=== PATIENT | male | born 1955 | race Caucasian/White ===

== ENCOUNTER → 2016-04-06 | Outpatient (CLI) | payer BC ==
[2014-02-27 09:14] VITALS: BP 157/70
[~2016-04-06] MED LIST: AMLO10TA2 PO; ASPI-482 PO; CHOL10002 PO; CYCL10TA2 PO; HYDR-2672 PO; HYDR-2762 PO; IBUP-1007 PO; LISI10TA2 PO; OXYC-250 PO; SIMV10TA3 PO
--- NOTE | 2016-04-07 05:47 | PAIN ---
DATE OF SERVICE: 04/06/2016 DIAGNOSES: 1. Lumbar spondylosis with lumbar degenerative disk disease and post-lumbar laminectomy syndrome. 2. Right sacroiliitis. HISTORY OF PRESENT ILLNESS: The patient is a 60-year-old male who returns for followup status post medication management with oxycodone and Flexeril. The patient reports he has been doing fairly well, but the oxycodone is becoming less and less effective overtime, especially over the last month or so. The patient has been vacationing with walking quite a bit at his vacation area and reports that his back was significantly painful as one time he had to use a wheelchair just to get back to his room. The patient reports no new motor or sensory deficits, no new bowel or bladder incontinence, but significant pain in the low back and bilateral lower extremities as he has had previously and was slightly worse on the right side. The patient reports no side effects with his medication, but less effectiveness with the oxycodone at this time. The patient's K-TRACS reporting has been appropriate to date as well as his urinalysis to date. He has been very compliant with medications. We discussed some interventional techniques and the patient is adamantly against these at this time. We did do radiofrequency ablation about a year ago, but the procedure itself was very uncomfortable for him and he wishes not to proceed with any more injections or procedures for his lumbar spine at this time. We did discuss this in some detail and let him know that this is available if he decides to go that way. PHYSICAL EXAMINATION: VITAL SIGNS: Today, the patient's blood pressure is 152/78, pulse 101, respirations 18, temperature 98.4 degrees Fahrenheit, height is 5 feet 10 inches, weighs 188 pounds. GENERAL: The patient is awake, alert, oriented and appropriate, very pleasant demeanor. HEENT: Shows normocephalic and atraumatic. Extraocular movements are intact and symmetrical. Oral cavity, mucous membranes are moist and pink. NECK: Shows anterior throat supple without palpable lymphadenopathy noted. Swallow reflex is symmetrical. CHEST: Shows normal on inspection. Breath sounds clear to auscultation bilaterally. HEART: Shows S1 and S2 clear. No murmurs auscultated. ABDOMEN: Soft, nontender, nondistended. No palpable organomegaly. No rebound or guarding demonstrated. BACK: The patient's back shows spine grossly midline. Normal-appearing thoracic kyphosis with some flattening of the lumbar lordotic curvature. Well-healed surgical scarring is noted in the lumbar distribution and lumbar paraspinous muscles are diffusely tender throughout the middle and lower distribution bilaterally, but without significant atrophy, hypertrophy or asymmetry. No tenderness over the sacrum or sacroiliac regions. EXTREMITIES: Lower extremities show deep tendon reflexes at 1+ in the patellar and tendo calcaneus tendons. Motor exam is strong with 5/5 dorsiflexion, extension, quadriceps and hamstring flexion equal bilaterally. Options were discussed with the patient at this time, the patient's old chart was reviewed as his current medication regimen and updated. Current review of systems updated today as well. We will refill the patient's medications, but change the oxycodone to hydromorphone at 4 mg with instructions to take one tablet up to 4 times daily and instructions and side effects were discussed with the medication. Again, the patient was encouraged to maintain activity as tolerated, mainly walking and stretching as he is doing, and he was given a 90-day supply of medications, will return for followup at that time or sooner as necessary. The patient was counseled to follow up with progress report within a week once he has tried the new medications, if there are any issues. NICK GOMEZ MD DR: MERRY/beth JOB#: [id number] / [id number]
== END | disposition home or self-care (01) ==
LOC: PNCL 12:47
PROVIDERS: ATTEND Anesthesiology
DX: M51.36 Other intervertebral disc degeneration, lumbar region (principal); M96.1 Postlaminectomy syndrome, not elsewhere classified; M46.1 Sacroiliitis, not elsewhere classified
CPT/HCPCS: 99212

== ENCOUNTER → 2016-06-29 | Outpatient (CLI) | payer BC ==
[2014-02-27 09:14] VITALS: BP 157/70
[~2016-06-29] MED LIST changes: +OXYC15TA PO
--- NOTE | 2016-06-30 02:35 | PAIN ---
DATE OF SERVICE: 06/29/2016 PROGRESS NOTE FOR PAIN CLINIC DIAGNOSIS: Lumbar spondylosis with lumbar degenerative disk disease, post-lumbar laminectomy syndrome. HISTORY OF PRESENT ILLNESS: The patient is a 61-year-old male who returns for followup status post medication management with oxycodone and Flexeril. The patient reports he has been doing fairly well ____ pain is increasing gradually ____ we had tried hydromorphone with him in the past, but it was not helpful at all and we changed him back to oxycodone 10 mg. The patient reports still significant pain across the low back bilaterally. Reports it is a 10 on a scale of 10 at all times. The patient reports it is stabbing, aching, severe, constant, worse with activity and being up on his feet and moving and walking, does not wake him up from sleep, but he does feel better lying down or sitting down, but he is on his feet, sometimes up to 17-18 hours a day by his report. The patient reports no new motor or sensory deficits or other complaints. Pain medication is helping, but only by about 50% at this time and the patient does seem to be developing some physiologic tolerance. PHYSICAL EXAMINATION: VITAL SIGNS: The patient's blood pressure is 136/75, pulse 101, respirations are 18, temperature is 98.2 degrees Fahrenheit, height is 5 feet 8 inches, weight is 185 pounds. GENERAL: The patient is awake, alert, oriented, appropriate, has a very pleasant demeanor. HEENT: Shows normocephalic, atraumatic. Extraocular movements are intact and symmetrical. Oral cavity, his mucous membranes are moist and pink. Dentition is intact. NECK: Shows anterior throat supple without palpable lymphadenopathy noted. Swallow reflex is symmetrical. CHEST: Shows normal on inspection. Breath sounds are clear to auscultation bilaterally. HEART: Shows S1 and S2 clear. ABDOMEN: Soft, nontender, nondistended. No palpable organomegaly is noted. No rebound or guarding demonstrated. BACK: Shows spine grossly in the midline. Normal appearing thoracic kyphosis with some mild flattening of the lumbar lordotic curvature. Well-healed surgical scar is noted in the lumbar distribution. Lumbar paraspinous muscle shows some moderate tenderness to palpation. It is very firm and tender throughout the upper, middle and lower distribution of the paraspinous muscles. The patient shows good rotational motion both laterally as well as extension and flexion with only some minor pain reported in all these rotations. EXTREMITIES: Lower extremities show deep tendon reflexes 1+ in the patellar and tendo-calcaneus tendons. Motor exam is strong with 5/5 dorsiflexion, extension, quadriceps and hamstring flexion, equal and symmetrical. PLAN: Options were discussed with the patient and the patient's old chart was reviewed as was his current medication regimen and updated. Current review of systems updated today as well. We will refill the patient's oxycodone, but at 15 mg instead of 10 as well as his Flexeril, refill that at 10 mg. The patient was given instructions as well as side effects to be aware of with the medications. We will follow up in approximately 2 months as scheduled or sooner if necessary. The patient was cautioned as to the side effects and to maintain hydration. As he is doing well with some MiraLax he takes occasionally, but not every day for some mild constipation he has had, we warned him with higher dose of the oxycodone, this could become more of a problem. The patient is aware of this and will follow up as scheduled. NICK GOMEZ MD DR: MERRY/beth JOB#: [id number] / [id number]
== END | disposition home or self-care (01) ==
LOC: PNCL 12:47
PROVIDERS: ATTEND Anesthesiology
DX: M51.36 Other intervertebral disc degeneration, lumbar region (principal); M47.896 Other spondylosis, lumbar region; M96.1 Postlaminectomy syndrome, not elsewhere classified
CPT/HCPCS: 99212

== ENCOUNTER → 2016-08-27 | Outpatient (CLI) | payer BC ==
[2014-02-27 09:14] VITALS: BP 157/70
[~2016-08-27] MED LIST changes: -HYDR-2672 PO; +HYDR-2766 PO; -OXYC-250 PO; +OXYC-328 PO
== END | disposition home or self-care (01) ==
LOC: PNCL 07:45
PROVIDERS: ATTEND Anesthesiology
DX: M51.36 Other intervertebral disc degeneration, lumbar region (principal); M47.896 Other spondylosis, lumbar region; M96.1 Postlaminectomy syndrome, not elsewhere classified
CPT/HCPCS: 99212

== ENCOUNTER → 2016-10-22 | Outpatient (CLI) | payer BC ==
[2014-02-27 09:14] VITALS: BP 157/70
--- NOTE | 2016-10-22 10:33 | PAIN ---
DATE OF SERVICE: 10/22/2016 DIAGNOSES: Lumbar spondylosis, lumbar degenerative disk disease and post-lumbar laminectomy syndrome. HISTORY OF PRESENT ILLNESS: The patient is a 61-year-old male who returns for followup status post medication management with oxycodone. The patient also has undergone right-sided L5-S1 and L4-L5 facet injections and facet blocks, also radiofrequency ablation of the L4-L5 and L5-S1 levels in February 2015 with only minimal improvement. The patient has had multiple recurrences that is of facet joint injections, epidural steroids in the past, all with only very limited relief of pain even with radiofrequency ablation, had only about 1 month of decreased pain and it was only by about 40-50%. The patient reports he does fairly well with the oxycodone, but the pain is becoming worse with time in his low back, leaning on the right side, radiating into his right posterior hip and gluteus, but not into the lower extremity significantly. The patient reports it as aching, sharp, burning, severe and unbearable at times, 10 on a scale of 10 at all levels. The patient reports it awakens him from sleep fairly significantly. He does take pain medication, get out of bed, change positions, also taking Flexeril at night, which helps decrease the pain as well. The patient reports pain increasing with activity. He is very busy with his occupation on his feet most of his working day and it slows down significantly. The patient reports no new motor or sensory deficits, no new bowel or bladder incontinence. PHYSICAL EXAMINATION: VITAL SIGNS: The patient's blood pressure is 145/85, pulse 93, respirations 20, temperature 98.5 degrees Fahrenheit, weight is 175 pounds. GENERAL: The patient is awake, alert, oriented, appropriate, very pleasant demeanor. HEENT: Head shows normocephalic, atraumatic. Extraocular movements are intact, symmetrical. Oral cavity, mucous membranes are moist and pink. Dentition is intact. NECK: Shows anterior throat supple. CHEST: Shows normal on inspection. Breath sounds clear to auscultation bilaterally. HEART: Shows S1 and S2 clear. No murmurs auscultated. ABDOMEN: Soft, nontender, nondistended. No palpable organomegaly, no rebound or guarding demonstrated. BACK: Shows spine grossly midline. Well-healed surgical scar is noted in the lumbar distribution. Lumbar paraspinous muscle shows some moderate tenderness with palpation bilaterally, but only diffusely in the middle and lower distribution. The patient shows some limited rotational motion secondary to pain and immobility secondary to the surgeries with forward flexion limited to about 40 degrees. EXTREMITIES: Lower extremities show deep tendon reflexes at 2+ in the patellar, 1+ in the tendo calcaneus tendons. Motor exam remain strong with 5/5 dorsiflexion, extension, quadriceps and hamstring flexion. PLAN: Options were discussed with the patient and the patient's old chart was reviewed as his current medication regimen updated. Current review of systems updated today as well. We will change the patient's oxycodone from 15 mg to 20 mg as he is having increased pain, also maintained Flexeril at night. The patient was given instruction as well as side effects to be aware of each of the medications. He is encouraged to maintain his hydration as well as activity level as tolerated. He reports that he would like to talk to his neurosurgeon and has already made an appointment for himself for any other options that may be available. We will have the patient follow up after that appointment and will be given 2-month prescription for his medications with instructions, side effects to be aware of discussed. The patient will follow up sooner if necessary. NICK GOMEZ MD DR: MERRY/beth JOB#: [id number] / [id number]
== END | disposition home or self-care (01) ==
LOC: PNCL 07:42
PROVIDERS: ATTEND Anesthesiology
DX: M51.16 Intervertebral disc disorders with radiculopathy, lumbar region (principal); M96.1 Postlaminectomy syndrome, not elsewhere classified; M47.9 Spondylosis, unspecified
CPT/HCPCS: 99212

== ENCOUNTER → 2016-11-17 | Outpatient (CLI) | payer BC ==
[2014-02-27 09:14] VITALS: BP 157/70
--- NOTE | 2016-11-17 12:57 | RAD ---
EXAM: Lumbar spine CT without contrast. HISTORY: Radiographically. TECHNIQUE: Computed tomographic images of the lumbar spine were obtained without contrast. Multiplanar reformatting was performed. COMPARISON: 02/27/2014. FINDINGS: There is instrumented posterior spinal fusion and intervertebral disc fusion device placement at L5-S1. The posterior instrumentation consists of paired left transpedicular screws bridged by a vertical hubert. There has been explantation of right transjugular screws. There is levoscoliosis centered at L5-S1. There is mild endplate remodeling at all levels. There is a Schmorl's node within the inferior endplate of T11. No suspicious lytic or sclerotic osseous lesion is seen. There is vacuum phenomenon involving the sacroiliac joints. At L1-L2, there is no stenosis. At L2-L3, there is a right lateral predominant disc bulge and endplate remodeling. There is mild right foraminal stenosis. At L3-L4, there is a disc bulge and endplate remodeling. There is mild left greater and right facet arthropathy. There is no stenosis. At L4-L5, there is a disc bulge and endplate remodeling. There is moderate facet arthropathy. There is minimal central canal stenosis. At L5-S1, there is instrumented fusion. There is a posterior central to right paracentral disc protrusion superimposed on a disc bulge and endplate remodeling. There is moderate right foraminal stenosis. There is suspected slight effacement of the right lateral recess. IMPRESSION: 1. Instrumented fusion at L5-S1, with explantation of prior right transpedicular screws. There is a posterior central to right paracentral disc protrusion superimposed on a disc bulge and endplate remodeling at this level, resulting in moderate right foraminal stenosis and suspected effacement of the right lateral recess. This is similar compared to the prior study. 2. Degenerative change throughout the remainder of the lumbar spine, described above. PQRS Compliance Statement: One or more of the following individualized dose reduction techniques were utilized for this examination: 1. Automated exposure control 2. Adjustment of the mA and/or kV according to patient size 3. Use of iterative reconstruction technique
== END | disposition home or self-care (01) ==
LOC: CT 09:35
PROVIDERS: ATTEND Neurological Surgery
DX: M54.16 Radiculopathy, lumbar region (principal)
CPT/HCPCS: 72131

== ENCOUNTER → 2016-12-17 | Outpatient (CLI) | payer BC ==
[2014-02-27 09:14] VITALS: BP 157/70
[~2016-12-17] MED LIST changes: +OXYC10TA PO
--- NOTE | 2016-12-17 10:18 | PAIN ---
DATE OF SERVICE: 12/17/2016 DATE OF SERVICE: 12/17/2016 DIAGNOSES: Lumbar spondylosis with lumbar degenerative disk disease, post-lumbar laminectomy syndrome and right sacroiliitis. HISTORY OF PRESENT ILLNESS: The patient is a 61-year-old male who returns for followup status post medication management with oxycodone. We had changed to 20 mg from 10 after the last visit. The patient reports he is doing much better with about 75% improvement in pain control after that change. The patient is still having some significant pain in the right low back. He also had a followup with his neurosurgeon and new CT scan of the lumbar spine was reviewed with him today showing instrumented fusion at L5-S1 and still posterior central to right paracentral disk protrusion superimposed on a disk bulge and endplate remodeling at the same level resulting in moderate right foraminal stenosis and suspected effacement of the right lateral recess similar to previous study. The patient reports still significant pain in the right posterior hip and low back, reports worse with walking, standing and recent change in weather. With colder weather, the pain has been much more noticeable. The patient reports no new motor or sensory deficits, no new bowel or bladder incontinence. The patient reports his pain is a 10 on a scale of 10 at all times, worst, least and average. It is radiating, severe, sharp, aching, dull and shooting at times in the right posterior hip. The patient reports it usually does not awaken him from sleep, feels better when he is lying down or sitting, and worse with standing and walking. PAST MEDICAL HISTORY: Significant for hypertension, arthritis, cigarette smoking. PREVIOUS SURGERY: Include lumbar surgery x 5 with fusion and screw removal, also left knee scope in the past. CURRENT MEDICATIONS: Well documented and updated on the patient's chart today. ALLERGIES: The patient has no known drug allergies. SOCIAL HISTORY: The patient continues to smoke about half a pack daily, does not drink alcohol. The patient is still working as a mulligan despite the chronic pain condition, he is maintaining productive activity. FAMILY HISTORY: Significant for heart disease, hypertension. REVIEW OF SYSTEMS: Positive for those items mentioned in history of present illness. All systems reviewed and otherwise negative. It is complete and well documented on the patient's chart. PHYSICAL EXAMINATION: VITAL SIGNS: Today, blood pressure is 145/73, pulse 91, respirations are 18, temperature is 98.4 degrees Fahrenheit, height 5 feet 10 inches, weight is 177 pounds. GENERAL: The patient is awake, alert, oriented, appropriate, very pleasant demeanor. HEENT: Head shows normocephalic, atraumatic. Extraocular movements are intact, symmetrical. Oral cavity: Mucous membranes moist and pink. Dentition is intact. NECK: Shows anterior throat supple without palpable lymphadenopathy noted. Swallow reflex is symmetrical. CHEST: Shows normal on inspection. Breath sounds are clear to auscultation bilaterally. HEART: Shows S1 and S2 clear. No murmurs auscultated. ABDOMEN: Soft, nontender, nondistended. No palpable organomegaly, no rebound or guarding. BACK: Shows spine grossly in midline. Significant flattening of lumbar lordotic curvature is noted with well-healed surgical scarring noted in the lumbar distribution. There is significant tenderness over the right superior aspect of the posterior sacroiliac joint, but not on the left. This is significantly tender with palpation, even with moderate palpation. The patient has good rotation and motion over the lower back, lumbar spine, both laterally as well as extension and flexion without significant exacerbation of pain. EXTREMITIES: Lower extremities showed deep tendon reflexes at 1+ in the patellar and tendo calcaneus tendons. Motor exam is strong with 5/5 dorsiflexion, extension, quadriceps and hamstring flexion and symmetrical. Peripheral pulses are 1+ posterior tibial. No peripheral edema is noted. PLAN: Options were discussed with the patient and the patient's old chart was reviewed as his current medication regimen updated. Current review of systems updated today as well. We will refill the patient's oxycodone as well as Flexeril with instructions, side effects to be aware of discussed. The patient will consider a right sacroiliac joint injection. The patient reports he had too much other scheduled activities this morning to do this today. I encouraged him to consider this and return if the pain persists or worsens, the patient understands and agrees was given instruction as well as side effects to be aware with his medications and encouraged increased activity, also showed him some stretching exercises to do today to try to stretch the sacroiliac joints. He will try this on his own as well. NICK GOMEZ MD DR: MERRY/beth JOB#: [id number] / [id number]
== END | disposition home or self-care (01) ==
LOC: PNCL 07:45
PROVIDERS: ATTEND Anesthesiology
DX: M51.16 Intervertebral disc disorders with radiculopathy, lumbar region (principal); M47.896 Other spondylosis, lumbar region; M46.1 Sacroiliitis, not elsewhere classified
CPT/HCPCS: 99212

== ENCOUNTER → 2017-02-11 | Outpatient (CLI) | payer BC ==
[2014-02-27 09:14] VITALS: BP 157/70
--- NOTE | 2017-02-11 08:24 | PAIN ---
DATE OF SERVICE: 02/11/2017 DIAGNOSES: 1. Lumbar spondylosis with lumbar degenerative disk disease and post-lumbar laminectomy syndrome. 2. Right sacroiliitis. HISTORY OF PRESENT ILLNESS: The patient is a 61-year-old male who returns for followup status post medication management with oxycodone. The patient is doing very well with this on very stable regimen for a long time now, has been doing quite well without side effects. The patient reports about a 70% improvement overall in his low back pain with medication. He is able to function during the day. He does not have any side effects. Reports the pain is mostly in the right side of the low back over the sacroiliac region that he has had before. The patient reports pain is a 10 on a scale of 10 at all times at least and worst and on average and is a 10 today. The patient reports it is worse with activity, standing, walking, changing positions, but better with sitting or lying down. It is not waking him from sleep at night, he sleeps 7-8 hours at a time. The patient reports the pain is radiating occasionally into the right posterior gluteus and thigh, but mostly stays in the low back itself across low back, worse on the right side, aching, sharp, burning, tingling, on and off in intensity, but worse with standing, walking, better with sitting, better with lying down. The patient reports no new motor or sensory deficits, no new bowel or bladder incontinence or other complaints. PHYSICAL EXAMINATION: VITAL SIGNS: The patient's blood pressure is 134/77, pulse 90, respirations 16, temperature 98.3 degrees Fahrenheit, height is 5 feet 10 inches, weight is 179 pounds. GENERAL: The patient is awake, alert, oriented, appropriate, very pleasant demeanor. HEENT: Head shows normocephalic, atraumatic. Extraocular movements are intact and symmetrical. Oral cavity: Mucous membranes moist and pink. Dentition is intact. NECK: Shows anterior throat supple without palpable lymphadenopathy noted. Swallow reflex symmetrical. CHEST: Shows normal with inspection. Breath sounds are clear to auscultation bilaterally. HEART: Shows S1, S2 clear. No murmurs auscultated. ABDOMEN: Soft, nontender, nondistended. No palpable organomegaly. No rebound or guarding demonstrated. BACK: Shows spine grossly in midline. Lumbar paraspinous musculature shows a well-healed surgical scar in the midline. Paraspinous muscles are diffusely tender with palpation throughout, somewhat worse on the right than the left. Significant tenderness over the right superior aspect of the sacroiliac joint, but not the left. No tenderness over the sacrum. EXTREMITIES: Lower extremities show deep tendon reflexes at 2+ in the patellar, 1+ tendo-calcaneus tendons are equal. Motor exam is strong with 5/5 dorsiflexion, extension, quads and hamstring flexion and symmetrical. Peripheral pulses are 1+ posterior tibial. No peripheral edema is noted bilaterally. Options were discussed with the patient. The patient's old chart was reviewed, his current medication regimen updated. Current review of systems updated today as well, and we will refill the patient's oxycodone 20 mg q.6 hours on a p.r.n. basis, as well as Flexeril 10 mg 3 times daily as needed. The patient was given instruction as well as side effects to be aware of on each of the medications. Also discussed right sacroiliac joint injection as he is having significant pain with a positive Gaenslen sign on the right. The patient wanted to consider this as he is pressed for time this morning and will consider having this done in the near future. We discussed that he can return prior to his scheduled appointment if necessary, which would be in 60 days. He is given 2-month prescription refill. The patient has had appropriate K-TRACS reporting as well as appropriate urinalysis to date as well. NICK GOMEZ MD DR: MERRY/beth JOB#: [id number] / [id number]
== END | disposition home or self-care (01) ==
LOC: PNCL 07:35
PROVIDERS: ATTEND Anesthesiology
DX: M51.36 Other intervertebral disc degeneration, lumbar region (principal); M47.896 Other spondylosis, lumbar region; M46.1 Sacroiliitis, not elsewhere classified
CPT/HCPCS: G0463

== ENCOUNTER → 2017-04-08 | Outpatient (CLI) | payer BC | END | disposition home or self-care (01) | LOC: PNCL 07:36 | DX: M51.36 Other intervertebral disc degeneration, lumbar region (principal); M96.1 Postlaminectomy syndrome, not elsewhere classified; M46.1 Sacroiliitis, not elsewhere classified; M47.896 Other spondylosis, lumbar region | CPT/HCPCS: 99212 ==

== ENCOUNTER → 2017-06-03 | Outpatient (CLI) | payer BC ==
[~2017-06-03] MED LIST changes: -AMLO10TA2 PO; -ASPI-482 PO; +BUPIVACAINE MPF 0.25% 10 ML VIAL.; -CHOL10002 PO; -CYCL10TA2 PO; -HYDR-2762 PO; -HYDR-2766 PO; -IBUP-1007 PO; +IOHEXOL 180 MG/ML 10 ML VIAL.; -LISI10TA2 PO; -OXYC-328 PO; -OXYC10TA PO; -OXYC15TA PO; -SIMV10TA3 PO; +methylPREDNISolone ACETATE 80 MG/ML VIAL.
== END | disposition home or self-care (01) ==
LOC: PNCL 07:35
DX: M46.1 Sacroiliitis, not elsewhere classified (principal); M47.816 Spondylosis without myelopathy or radiculopathy, lumbar region; M51.36 Other intervertebral disc degeneration, lumbar region; M96.1 Postlaminectomy syndrome, not elsewhere classified
CPT/HCPCS: 27096; 77002; G0260; J1040; J3490; Q9965

== ENCOUNTER → 2017-07-29 | Outpatient (CLI) | payer BC | END | disposition home or self-care (01) | LOC: PNCL 07:51 | DX: M47.896 Other spondylosis, lumbar region (principal); M51.36 Other intervertebral disc degeneration, lumbar region | CPT/HCPCS: 99212 ==

== ENCOUNTER → 2017-09-28 | Outpatient (CLI) | payer BC | END | disposition home or self-care (01) | LOC: PNCL 08:13 | DX: M51.36 Other intervertebral disc degeneration, lumbar region (principal); M47.896 Other spondylosis, lumbar region | CPT/HCPCS: G0463 ==

== ENCOUNTER → 2017-11-22 | Outpatient (CLI) | payer BC ==
[2014-02-27 09:14] VITALS: BP 157/70
[~2017-11-22] MED LIST changes: +AMLO10TA6 PO; +ASPI-482 PO; -BUPIVACAINE MPF 0.25% 10 ML VIAL.; +CHOL10002 PO; +CYCL10TA2 PO; +HYDR-2762 PO; +HYDR-2766 PO; +IBUP-1007 PO; -IOHEXOL 180 MG/ML 10 ML VIAL.; +LISI10TA2 PO; +OXYC-328 PO; +OXYC10TA PO; +OXYC15TA PO; +SIMV10TA3 PO; -methylPREDNISolone ACETATE 80 MG/ML VIAL.
--- NOTE | 2017-11-22 17:25 | PAIN ---
DATE OF SERVICE: 11/22/2017 DIAGNOSES: 1. Lumbar spondylosis, lumbar degenerative disease post-lumbar laminectomy syndrome. 2. Right sacroiliitis. HISTORY OF PRESENT ILLNESS: The patient is a 62-year-old male who returns for followup status post medication management using oxycodone as well as Flexeril. The patient reports he is doing fairly well with this, has been on very stable regimen with about 75% improvement in his pain in his low back and legs. The patient reports he did dislocate some ribs on his right upper back and this has been his main complaint with pain today. He is having chiropractic manipulations to help reduce the pain and he reports that this is helping. The patient reports otherwise doing well. No side effects with the medication. He is maintaining hydration. No itching, nausea or constipation. The patient reports the pain is aching and sharp, stabbing in the low back itself, slightly more on the right than the left. The patient reports it is 10 on a scale of 10 at its worst, 10 on an average, 10 at its least and is 10 today. The patient reports no new motor or sensory deficits. Reports it does not awaken him from sleep at night; much worse with standing, walking, changing positions. PHYSICAL EXAMINATION: VITAL SIGNS: The patient's blood pressure 137/71, pulse 84, respirations 18, temperature 98.5 degrees Fahrenheit, height is 5 feet 10 inches, weight is 185 pounds. GENERAL: The patient is awake, alert, oriented, appropriate, very pleasant demeanor. HEENT: Head shows normocephalic, atraumatic. Extraocular movements intact and symmetrical. Oral cavity: Mucous membranes moist and pink. Dentition intact. NECK: Shows anterior throat supple without palpable lymphadenopathy noted. Swallow reflex is symmetrical. CHEST: Shows normal on inspection. Breath sounds are clear to auscultation bilaterally. HEART: Shows S1, S2 clear. No murmurs auscultated. ABDOMEN: Soft, nontender, nondistended. No palpable organomegaly is noted. No rebound or guarding demonstrated. BACK: Shows spine grossly in the midline, normal-appearing thoracic kyphosis and lumbar lordotic curvature. Lumbar paraspinous muscle shows symmetrical on inspection; with palpation shows some moderate tenderness only diffusely without radiation. The patient has good rotational motion of lumbar spine, both laterally as well as extension and flexion. Some mild tenderness over the right sacroiliac region, but only mildly and the left is nontender. EXTREMITIES: Lower extremities show deep tendon reflexes at 1+ in the patellar and tendo-calcaneus tendons. Motor exam is strong with 5/5 dorsiflexion and extension. Peripheral pulses are 1+ posterior tibia. No peripheral edema is noted bilaterally. Options were discussed with the patient. The patient's old chart was reviewed as was current medication regimen updated, current review of systems updated today as well. We will refill the patient's oxycodone 20 mg as well as Flexeril 10 mg. The patient has had appropriate K-TRACS reporting as well as appropriate urinalysis to date. We will make prescriptions for a 2-month period, 60-day prescription that is. The patient was given instructions as well as side effects to be aware of each of medications. We will follow up in approximately 2 months or sooner if necessary. We also discussed some arthritis medications as the patient is interested in reducing some arthritic complaints he has and we discussed edvw-[id number] Aleve or Motrin. The patient will try one or the other of these and see if this is beneficial as well. NICK GOMEZ MD DR: MERRY/beth JOB#: [id number] / [id number]
== END | disposition home or self-care (01) ==
LOC: PNCL 07:44
PROVIDERS: ATTEND Anesthesiology
DX: M47.896 Other spondylosis, lumbar region (principal); M46.1 Sacroiliitis, not elsewhere classified; I10 Essential (primary) hypertension
CPT/HCPCS: 99212

== ENCOUNTER → 2018-02-04 | Outpatient (CLI) | payer BC ==
[2014-02-27 09:14] VITALS: BP 157/70
[~2018-02-04] MED LIST changes: -HYDR-2762 PO; +HYDR-2765 PO; -HYDR-2766 PO; +HYDR-2769 PO; -OXYC-328 PO; +OXYC1TAB22 PO
--- NOTE | 2018-02-04 10:07 | PAIN ---
DATE OF SERVICE: 02/04/2018 PROGRESS NOTE FOR PAIN CLINIC DIAGNOSES: Lumbar spondylosis, lumbar degenerative disk disease and post-lumbar laminectomy syndrome. HISTORY OF PRESENT ILLNESS: The patient is a 62-year-old male who returns for followup status post medication management with oxycodone and Flexeril. The patient reports he has been very stable and is doing quite well, reports about a 75-80% improvement with the medications and no side effects. The patient is maintaining hydration. He has no itching, no nausea, no dysphoria or memory loss. The patient reports his pain is still significant in the low back, sometimes in the mid back as well. The patient reports it is aching, tingling, stabbing, sometimes unbearable and sometimes constant without the medication. The patient reports pain is a 10 on a scale of 10 at all times. It is a 10 today. The patient reports no new motor or sensory deficits, no new bowel or bladder incontinence. The patient reports he sleeps well at night about 6-8 hours. It can awaken him from sleep in the low back, but it is rare. The patient reports no new motor or sensory deficits. He states when he is taking his medication, he is functioning very well and alertly. He increased his distance walking, work activities and household activities as well as traveling. The patient reports no new motor or sensory deficits or other complaints. PHYSICAL EXAMINATION: VITAL SIGNS: The patient's blood pressure is 144/84, pulse 90, respirations 16, temperature 98.2 degrees Fahrenheit. Height is 5 feet 10 inches, weight is 183 pounds. GENERAL: The patient is awake, alert, oriented, appropriate, very pleasant demeanor. HEENT: Shows normocephalic, atraumatic. Extraocular movements are intact and symmetrical. Oral cavity: Mucous membranes moist and pink. Dentition is intact. NECK: Shows anterior throat supple without palpable lymphadenopathy noted. Swallow reflex symmetrical. CHEST: Shows normal with inspection. Breath sounds clear to auscultation bilaterally. HEART: Shows S1, S2 clear. No murmurs auscultated. ABDOMEN: Soft, nontender, nondistended. No palpable organomegaly is noted. No rebound or guarding demonstrated. BACK: Shows spine grossly in the midline. Normal appearing thoracic kyphosis and lumbar lordotic curvature. Lumbar paraspinous muscle shows symmetrical on inspection, with palpation shows some moderate tenderness throughout the upper, middle and lower distribution of paraspinous muscle and fairly firm, but symmetrical without trigger points, without radiation. This is true into the mid thoracic distribution as well bilaterally. No radiation, no trigger points. The patient has good rotational motion both laterally as well as extension and flexion of lumbar spine and thoracic spine without significant difficulty. EXTREMITIES: Lower extremities show deep tendon reflexes 1+ in the patellar and tendo calcaneus tendons. Motor exam is 5/5 with dorsiflexion, extension, quadriceps and hamstring flexion and symmetrical. Peripheral pulses are 1+ posterior tibial. No peripheral edema is noted bilaterally. Options were discussed with the patient. The patient's old chart was reviewed as well as his current medication regimen updated. Current review of systems updated today as well. We will refill the patient's oxycodone as well as Flexeril for a 2-month period. The patient has had appropriate K-TRACS reporting as well as appropriate urinalysis to date. We will give 2-month prescription with instructions, side effects to be aware of discussed. The patient will follow up in approximately 2 months or sooner if necessary. NICK GOMEZ MD DR: MERRY/beth JOB#: [id number] / [id number]
== END | disposition home or self-care (01) ==
LOC: PNCL 08:05
PROVIDERS: ATTEND Anesthesiology
DX: M51.36 Other intervertebral disc degeneration, lumbar region (principal); M47.896 Other spondylosis, lumbar region
CPT/HCPCS: G0463

== ENCOUNTER → 2018-04-08 | Outpatient (CLI) | payer BC ==
[2014-02-27 09:14] VITALS: BP 157/70
[~2018-04-08] MED LIST changes: -AMLO10TA6 PO; +AMLO10TA8 PO
--- NOTE | 2018-04-08 19:29 | PAIN ---
DATE OF SERVICE: 04/08/2018 PROGRESS NOTE FOR PAIN CLINIC DIAGNOSES: 1. Lumbar spondylosis with lumbar degenerative disk disease and post-lumbar laminectomy syndrome. 2. Right sacroiliitis. HISTORY OF PRESENT ILLNESS: The patient is a 62-year-old male who returns for followup status post right sacroiliac joint injection as well as lumbar facet injections and epidural steroid injections and medication management as well as right radiofrequency ablation in the past. The patient had only temporary relief with any of these methods. He has been doing well on oxycodone 20 mg, however, he is beginning to develop some tolerance he believes, but the pain is still not controlled at its best as it was even a few months ago, but reports it is still decreasing the pain by about a 70-75% range. The patient reports pain in the low back, more on the right side than the left at this time, but present bilaterally. The patient reports it is a 10 on a scale of 10 at its worst, average and at its least and is a 10 today. The patient reports it is aching, sharp, stabbing, severe, constant, worse with walking, standing and changing positions, especially getting up from a seated position and sitting for prolonged periods, greater than 20-30 minutes. The patient reports it is awakening him from sleep about every 6-7 hours, but he can usually reposition and get back to sleep. The patient reports it is better with medications. As far as walking, doing work activities and household activities and he is very busy with his occupation. The patient reports the pain is aching, sharp, stabbing as well in the low back on the right side. PHYSICAL EXAMINATION: VITAL SIGNS: Today, the patient's blood pressure 146/85, pulse 96, respirations 20, temperature 98.0 degrees Fahrenheit, height is 5 feet 10 inches, weight is 180 pounds. GENERAL: The patient is awake, alert, oriented, appropriate, very pleasant demeanor. HEENT: Shows normocephalic, atraumatic. Extraocular movements are intact and symmetrical. Oral cavity: Mucous membranes are moist and pink. Dentition is intact. NECK: Shows anterior throat supple without palpable lymphadenopathy noted. Swallow reflex is symmetrical. CHEST: Shows normal on inspection. Breath sounds are clear to auscultation bilaterally. HEART: Shows S1, S2 clear. No murmurs auscultated. ABDOMEN: Soft, nontender, nondistended. No palpable organomegaly is noted. No rebound or guarding demonstrated. BACK: Shows spine grossly in the midline. Slight exaggeration of thoracic kyphosis and some minor flattening of lumbar lordotic curvature. Well-healed surgical scars again noted. Paraspinous musculature shows symmetrical on inspection, with palpation shows some moderate tenderness throughout the upper, middle and lower distribution of the paraspinous muscles diffusely, but without asymmetry. Muscles are firm, but without specific trigger points and no radiation of pain. The patient shows good rotational motion, both laterally as well as extension and flexion of lumbar spine without significant increase in pain. There is some significant tenderness over the posterior superior iliac spine on the right as well as moderate pain over the right sacroiliac region, but not the left. EXTREMITIES: The patient's lower extremities show deep tendon reflexes at 1+ in the patellar and tendo-calcaneus tendons. Motor exam is strong with 5/5 dorsiflexion, extension, quadriceps and hamstring flexion and symmetrical. Peripheral pulses are 1+ posterior tibia. No peripheral edema is noted bilaterally. Options were discussed with the patient. The patient's old chart was reviewed as his current medication regimen updated, current review of systems updated today as well. We will refill the patient's oxycodone 20 mg as well as Flexeril 10 mg. The patient was given instructions as well as side effects to be aware of with each of these. The patient has had appropriate K-TRACS reporting as well as appropriate urinalysis to date. We will have urinalysis drawn today as part of routine screening. The patient was given a 2-month prescription and will return in 2 months or sooner if necessary. NICK GOMEZ MD DR: MERRY/beth JOB#: [id number] / [id number]
== END | disposition home or self-care (01) ==
LOC: PNCL 07:53
PROVIDERS: ATTEND Anesthesiology
DX: M47.896 Other spondylosis, lumbar region (principal); M51.36 Other intervertebral disc degeneration, lumbar region; M96.1 Postlaminectomy syndrome, not elsewhere classified; M46.1 Sacroiliitis, not elsewhere classified
CPT/HCPCS: G0463

== ENCOUNTER → 2018-06-03 | Outpatient (CLI) | payer MEDICARE, OTHER ==
[2014-02-27 09:14] VITALS: BP 157/70
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
== END | disposition home or self-care (01) ==
LOC: PNCL 07:56
PROVIDERS: ATTEND Anesthesiology
DX: M47.816 Spondylosis without myelopathy or radiculopathy, lumbar region (principal); M51.36 Other intervertebral disc degeneration, lumbar region; M96.1 Postlaminectomy syndrome, not elsewhere classified
CPT/HCPCS: G0463

== ENCOUNTER → 2018-07-29 | Outpatient (CLI) | payer BC, MEDICARE ==
[2014-02-27 09:14] VITALS: BP 157/70
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
== END | disposition home or self-care (01) ==
LOC: PNCL 07:49
PROVIDERS: ATTEND Anesthesiology
DX: M51.36 Other intervertebral disc degeneration, lumbar region (principal); M47.816 Spondylosis without myelopathy or radiculopathy, lumbar region; M46.1 Sacroiliitis, not elsewhere classified; M96.1 Postlaminectomy syndrome, not elsewhere classified; Z79.899 Other long term (current) drug therapy
CPT/HCPCS: G0463

== ENCOUNTER → 2018-09-23 | Outpatient (CLI) | payer MEDICARE ==
[2014-02-27 09:14] VITALS: BP 157/70
--- NOTE | 2018-09-23 09:28 | PAIN ---
DATE OF SERVICE: 09/23/2018 PROGRESS NOTE FOR PAIN CLINIC DIAGNOSES: Lumbar degenerative disk disease with lumbar spondylosis and post-lumbar laminectomy syndrome. HISTORY OF PRESENT ILLNESS: The patient is a 63-year-old male who returns for followup status post medication management with oxycodone as well as Flexeril. The patient reports he is doing very well on a stable regimen, still some significant pain in the low back and leg, worse with walking and standing, but better with the medication. The patient reports it is basically the only thing that he gets him by during the day. He has had a very busy few months with work and has had increased pain and increased activity. The patient reports sleeping better at night, but does awaken him about every 4-5 hours. The pain in the low back itself the patient reports is aching, shooting, stabbing at times and becoming constant at times as well. The patient reports it is a 10 on a scale of 10 at most times, average worst and least is a 10 today. The patient reports no new motor or sensory deficits, no side effects with medication. The patient has had interventional techniques in the past, all with limited duration and is not interested in pursuing these at this time. We did discuss this in some detail with reimaging of the lumbar spine as well as his sacroiliac regions. He would like to wait on this as he feels that he is getting by daily and doing fairly well with the medication regimen he is on. PHYSICAL EXAMINATION: VITAL SIGNS: The patient's blood pressure is 145/81, pulse 91, respirations 16, temperature 98.5 degrees Fahrenheit, height is 5 feet 10 inches and weight is 177 pounds. GENERAL: The patient is awake, alert, oriented, appropriate, very pleasant demeanor. HEENT: Head shows normocephalic, atraumatic. Extraocular movements are intact and symmetrical. Oral cavity, mucous membranes are moist and pink. Dentition is intact. NECK: Shows anterior throat supple without palpable lymphadenopathy noted. Swallow reflex symmetrical. CHEST: Shows normal on inspection. Breath sounds clear to auscultation bilaterally. HEART: Shows S1, S2 clear. No murmurs auscultated. ABDOMEN: Soft, nontender, nondistended. No palpable organomegaly is noted. No rebound or guarding demonstrated. BACK: Shows spine grossly in the midline. Normal appearing thoracic kyphosis and lumbar lordotic curvature. Lumbar paraspinous muscle shows symmetrical on inspection, on palpation shows some moderate tenderness diffusely, but only diffusely bilaterally without radiation. The patient's back shows good rotational motion with some mild tenderness with extension, but not with forward flexion, right and left lateral rotation is performed without difficulty. There is some moderate tenderness over the right greater than left sacroiliac regions but only mildly. NEUROLOGIC: The patient's lower extremities showed deep tendon reflexes at 2+ in the patellar, 1+ tendo-calcaneus tendons. Motor exam is strong with 5/5 dorsiflexion, extension and equal. Peripheral pulses are 1+ posterior tibial. No peripheral edema is noted bilaterally. Options were discussed with the patient. The patient's old chart was reviewed as his current medication regimen updated. Current review of systems updated today as well. We will proceed with refill of the patient's oxycodone as well as Flexeril. The patient was given a 2-month prescription. He has had appropriate K-TRACS reporting as well as appropriate urinalysis to date. We will make this a 2-month refill. The patient was given instruction as well as side effects to be aware of each of the medications and will follow up in approximately 2 months or sooner if necessary. NICK GOMEZ MD DR: MERRY/beth JOB#: [id number] / [id number]
== END | disposition home or self-care (01) ==
LOC: PNCL 07:55
PROVIDERS: ATTEND Anesthesiology
DX: M51.36 Other intervertebral disc degeneration, lumbar region (principal); M47.816 Spondylosis without myelopathy or radiculopathy, lumbar region; M96.1 Postlaminectomy syndrome, not elsewhere classified; Z79.891 Long term (current) use of opiate analgesic
CPT/HCPCS: G0463

== ENCOUNTER → 2018-11-18 | Outpatient (CLI) | payer MEDICARE ==
[2014-02-27 09:14] VITALS: BP 157/70
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
== END | disposition home or self-care (01) ==
LOC: PNCL 07:59
PROVIDERS: ATTEND Anesthesiology
DX: M47.26 Other spondylosis with radiculopathy, lumbar region (principal); M46.1 Sacroiliitis, not elsewhere classified; M96.1 Postlaminectomy syndrome, not elsewhere classified
CPT/HCPCS: G0463

== ENCOUNTER → 2019-01-13 | Outpatient (CLI) | payer MEDICARE ==
[2014-02-27 09:14] VITALS: BP 157/70
[~2019-01-13] MED LIST changes: +SIMV10TA15 PO; -SIMV10TA3 PO
--- NOTE | 2019-01-13 08:57 | PAIN ---
DATE OF SERVICE: 01/13/2019 PROGRESS NOTE FOR PAIN CLINIC DIAGNOSES: 1. Lumbar degenerative disk disease, lumbar spondylosis, post lumbar laminectomy syndrome. 2. Right sacroiliitis. HISTORY OF PRESENT ILLNESS: The patient is a 63-year-old male, who returns for followup status post medication management of oxycodone and Flexeril. The patient reports he is doing very well with this and has been on very stable regimen with about 70% improvement overall without significant side effects. The patient reports still pain in the low back on the right side and into the right leg. Occasionally, the patient reports pain is 10 on a scale of 10 at all times on average, worst in his sleep over the past few weeks, and is at 10 today. The patient reports it awakens him from sleep occasionally but not any sooner than every 5-6 hours. He can usually reposition. The patient reports it is aching and dull, sharp, tight, shooting, stabbing, and tingling in the right hip. We did try Medrol Dosepak on his last visit because it was exacerbated and he did report this significantly decreased the pain while he was taking it, but the pain is back to baseline. The patient reports no new motor or sensory deficits, no new bowel or bladder incontinence, or other complaints. PHYSICAL EXAMINATION: VITAL SIGNS: The patient's blood pressure 130/81, pulse 84, respirations 18, temperature 98.1 degree Fahrenheit, height is 5 feet 10 inches, and weight is 177 pounds. GENERAL: The patient is awake, alert, oriented, appropriate; very pleasant demeanor. HEENT: Head shows normocephalic, atraumatic. Extraocular movements are intact and symmetrical. Oral cavity: Mucous membranes are moist and pink. Dentition is intact. NECK: Shows anterior throat supple without palpable lymphadenopathy noted. Swallow reflex is symmetrical. CHEST: Shows normal on inspection. Breath sounds are clear bilaterally. HEART: Shows S1, S2, clear; no murmurs auscultated. ABDOMEN: Soft, nontender, nondistended. BACK: Shows spine grossly in the midline; normal-appearing thoracic kyphosis and flattening of lumbar lordotic curvature; lumbar paraspinous musculature flattened, and well-healed surgical scar; with palpation shows some moderate tenderness diffusely bilaterally throughout the upper, middle, and lower distribution of the paraspinous muscles but without radiation. The patient shows good rotational motion of lumbar spine, both laterally as well as in extension and flexion, without significant difficulty. EXTREMITIES: Lower extremities show deep tendon reflexes 2+ in the patellar, 1+ tendo-calcaneus tendons. Motor exam is strong with 5/5 dorsiflexion and extension; quadriceps and hamstring flexion symmetrical. Peripheral pulses are 1+ posterior tibia. No peripheral edema is noted bilaterally. ASSESSMENT AND PLAN: Options were discussed with the patient. The patient's old chart was reviewed as well as his current medication regimen updated. Current review of systems is updated today as well. We will refill the patient's oxycodone as well as Flexeril with a 2-month prescription. The patient has had appropriate K-TRACS reporting as well as appropriate urinalysis to date. We will have a urinalysis drawn today as routine screening. The patient will return to the clinic in approximately 2 months or sooner as necessary. NICK GOMEZ MD DR: MERRY/beth JOB#: [id number] / [id number]
== END | disposition home or self-care (01) ==
LOC: PNCL 08:02
PROVIDERS: ATTEND Anesthesiology
DX: M51.36 Other intervertebral disc degeneration, lumbar region (principal); M47.816 Spondylosis without myelopathy or radiculopathy, lumbar region; M96.1 Postlaminectomy syndrome, not elsewhere classified; M46.1 Sacroiliitis, not elsewhere classified
CPT/HCPCS: G0463

== ENCOUNTER → 2019-03-08 | Outpatient (CLI) | payer MEDICARE ==
[2014-02-27 09:14] VITALS: BP 157/70
--- NOTE | 2019-03-08 08:59 | PAIN ---
DATE OF SERVICE: 03/08/2019 PROGRESS NOTE FOR PAIN CLINIC DIAGNOSES: Lumbar degenerative disk disease with lumbar spondylosis, lumbar post-laminectomy syndrome, and right sacroiliitis. HISTORY OF PRESENT ILLNESS: The patient is a 63-year-old male who returns for followup status post medication management with oxycodone. The patient reports he is doing fairly well with this. He is on a very stable regimen, reports no specific side effects with medication, about 75% improvement overall without side effects. The patient reports that he is having a lumbar surgery with diskectomy and fusion scheduled for either later this month or early in March at [facility]. The patient is waiting for lab work and scheduling for surgery. We asked him to keep us informed of the dates for this as well. The patient reports otherwise doing fairly well, still pain in the low back, more on the right than the left, into the left hip as well, worse with walking, standing, changing positions, better with sitting or lying down. Reports pain is 10 on a scale of 10 at all times, worst, least and average and is a 10 today. It is better with sitting or lying down, does not awaken him from sleep at night. The patient reports no new motor or sensory deficits, describes the pain as aching, sharp, shooting, stabbing, becoming constant, severe, unbearable with weightbearing activity and walking. PHYSICAL EXAMINATION: VITAL SIGNS: The patient's blood pressure is 134/72, pulse 91, respirations are 18, temperature 98.3 degrees Fahrenheit, height is 5 feet 10 inches, weighs 187 pounds. GENERAL: The patient is awake, alert, oriented, appropriate, very pleasant demeanor. HEENT: Shows normocephalic, atraumatic. Extraocular movements are intact and symmetrical. Oral cavity: Mucous membranes moist and pink. NECK: Shows anterior throat is supple. CHEST: Shows normal on inspection. Breath sounds are clear bilaterally. HEART: Shows S1, S2 clear. No murmurs auscultated. ABDOMEN: Soft, obese, nontender, nondistended. BACK: Shows spine grossly in the midline. Slight exaggeration of thoracic kyphosis and flattening of lumbar lordotic curvature is moderate. Lumbar paraspinal muscles show symmetrical on inspection with well-healed surgical scar, with palpation shows some moderate tenderness diffusely bilaterally throughout the upper, middle and lower distribution of the paraspinous muscles, more on the left than the right, without specific radiation, however, some mild tenderness over the bilateral sacroiliac joints, slightly more on the right than the left as well as the posterior superior iliac spine on the right. The patient has good rotational motion; however, both laterally as well as extension and flexion with some mild pain in all ranges of motion. EXTREMITIES: Lower extremities show deep tendon reflexes 1+ in the patellar and tendo calcaneus tendons. Motor exam is strong with 5/5 dorsiflexion, extension, quadriceps, and hamstring flexion. Peripheral pulses are 1+. No peripheral edema is noted. Options were discussed with the patient. The patient's old chart was reviewed as his current medication regimen updated. Current review of systems updated today as well. We will refill the patient's oxycodone for a 2-month period. The patient has had appropriate K-TRACS reporting as well as appropriate urinalysis to date. We will refill this for 2-month period. The patient will return to clinic within the next 2 months for refill and/or depending on the patient's surgery schedule, sooner for postoperative pain control. The patient again will contact the office once surgery is scheduled with those dates. NICK GOMEZ MD DR: MERRY/beth JOB#: [id number] / [id number]
== END | disposition home or self-care (01) ==
LOC: PNCL 07:52
PROVIDERS: ATTEND Anesthesiology
DX: M51.36 Other intervertebral disc degeneration, lumbar region (principal); M96.1 Postlaminectomy syndrome, not elsewhere classified; M47.816 Spondylosis without myelopathy or radiculopathy, lumbar region; M46.1 Sacroiliitis, not elsewhere classified
CPT/HCPCS: G0463

== ENCOUNTER → 2019-05-03 | Outpatient (CLI) | payer MEDICARE ==
[2014-02-27 09:14] VITALS: BP 157/70
--- NOTE | 2019-05-03 09:12 | PAIN ---
DATE OF SERVICE: 05/03/2019 PROGRESS NOTE FOR PAIN CLINIC DIAGNOSES: Lumbar degenerative disk disease, lumbar spondylosis and post-lumbar laminectomy syndrome. HISTORY OF PRESENT ILLNESS: The patient is a 63-year-old male who returns for followup status post medication management with oxycodone and Flexeril. The patient reports he is doing very well with this, has been on a very stable regimen. Actually, he is feeling better over the last month or so. He did have a flu virus about a month ago as well, which was quite uncomfortable, but he has gotten past this now. The patient reports still pain in the low back and right hip and leg. The patient reports he is awaiting a surgical preauthorization with [facility] and has had his blood work done and still waiting to hear on the surgery, which may be now after this summer. The patient reports that the pain is a 10 on a scale of 10 at its worst over the past week, 10 on average, 10 at its least and is a sharp pain, burning, stabbing, shooting in the low back, sometimes unbearable, worse with walking, standing, better with sitting or lying down, generally does not awaken him from sleep at night. The patient reports no new motor or sensory deficits, no side effects with this medication, has been on very stable regimen, is well controlled. The patient has been increasing his distance walking, doing work activities and household activities, which is more tolerable with the medication, about 70-75% improvement overall, again without side effects. PHYSICAL EXAMINATION: VITAL SIGNS: The patient's blood pressure is 141/51, pulse 78, respirations 18, temperature 97.8 degrees Fahrenheit, height is 5 feet 10 inches, weight is 194 pounds. GENERAL: The patient is awake, alert, oriented, appropriate, very pleasant demeanor. HEENT: Shows normocephalic, atraumatic. Extraocular movements are intact and symmetrical. Oral cavity: Mucous membranes moist and pink. Dentition is intact. NECK: Shows anterior throat supple without palpable lymphadenopathy noted. Swallow reflex symmetrical. CHEST: Shows normal on inspection. Breath sounds are clear bilaterally. HEART: Shows S1, S2 clear. ABDOMEN: Soft, nontender, nondistended. No palpable organomegaly is noted. No rebound or guarding demonstrated. BACK: Shows spine grossly in the midline. Normal appearing thoracic kyphosis and flattening of lumbar lordotic curvature with well-healed surgical scarring noted. Lumbar paraspinous muscle shows symmetrical on inspection, on palpation shows some moderate tenderness diffusely throughout the upper, middle and lower distribution of paraspinous muscles, but without specific trigger points, without specific radiation. The patient shows good rotational motion of lumbar spine, both laterally as well as extension and flexion without significant increase in pain. EXTREMITIES: Lower extremities show deep tendon reflexes 1+ in the patellar and tendo-calcaneus tendons. Motor exam is strong with 5/5 dorsiflexion, extension equal. Peripheral pulses are 1+ bilaterally. Options were discussed with the patient. The patient's old chart was reviewed as his current medication regimen updated. Current review of systems updated today as well. We will refill the patient's medications, oxycodone as well as Flexeril. The patient had appropriate K-TRACS reporting as well as appropriate urinalysis to date. We will make this for a 2-month prescription refill. The patient was counseled as to medication regimen as well as side effects to be aware of each of the medications and will follow up in approximately 2 months or sooner as necessary. NICK GOMEZ MD DR: MERRY/beth JOB#: [id number] / [id number]
== END | disposition home or self-care (01) ==
LOC: PNCL 07:49
PROVIDERS: ATTEND Anesthesiology
DX: M47.816 Spondylosis without myelopathy or radiculopathy, lumbar region (principal); M51.36 Other intervertebral disc degeneration, lumbar region
CPT/HCPCS: G0463

== ENCOUNTER → 2019-06-28 | Outpatient (CLI) | payer MEDICARE ==
[2014-02-27 09:14] VITALS: BP 157/70
[~2019-06-28] MED LIST changes: -OXYC15TA PO; +OXYC15TA3 PO
--- NOTE | 2019-06-28 08:56 | PAIN ---
DATE OF SERVICE: 06/28/2019 PROGRESS NOTE FOR PAIN CLINIC DIAGNOSES: 1. Lumbar degenerative disk disease, lumbar spondylosis, lumbar post-laminectomy syndrome. 2. Right sacroiliitis. HISTORY OF PRESENT ILLNESS: The patient is a 64-year-old male who returns for followup status post medication management with oxycodone and Flexeril. The patient reports doing very well, has been on very stable regimen of medication without any side effects. The patient reports the pain is very well controlled by about 70%. As per usual, the patient has been having more pain with activity, standing and walking. He is scheduled for lumbar decompression surgery, but not until later this fall. The patient reports his pain on average last week is a 10, worst is a 10, least is about a 5 and reports it is about a 9 today. The patient reports it is sharp, shooting, burning, stabbing across the low back, more on the right than the left, but present bilaterally. The patient reports again no specific radiation to lower extremities at this time, but more significant pain in the low back itself with activity. The patient reports it is better with sitting or lying down, does not awaken him from sleep at night, worse with walking and standing, change in positions and driving. The patient reports no new motor or sensory deficits, no bowel or bladder incontinence. PHYSICAL EXAMINATION: VITAL SIGNS: The patient's blood pressure 152/75, pulse 90, respirations 18, temperature 98.2 degrees Fahrenheit, height is 5 feet 10 inches, weight is 203 pounds. GENERAL: The patient is awake, alert, oriented, appropriate, very pleasant demeanor. HEENT: Shows normocephalic, atraumatic. Extraocular movements are intact and symmetrical. Oral cavity: Mucous membranes moist and pink. Dentition is intact. NECK: Shows anterior throat supple without palpable lymphadenopathy noted. Swallow reflex symmetrical. CHEST: Shows normal on inspection. Breath sounds clear bilaterally. HEART: Shows S1, S2 clear. No murmurs auscultated. ABDOMEN: Soft, nontender, nondistended. BACK: Shows spine grossly in the midline. Normal appearing thoracic kyphosis and some minor flattening of lumbar lordotic curvature with well-healed surgical scarring noted in the lumbar distribution. Lumbar paraspinous muscle shows symmetrical on inspection, very firm, diffuse tenderness throughout the upper, middle and lower distribution of paraspinous muscles bilaterally. Mild tenderness over the right sacroiliac region, but only mildly. No tenderness on the left. The patient does show good rotational motion with some minor tenderness with extension, but not with forward flexion, right and left lateral rotation is performed without difficulty. Significant pain reported in lower extremities. Deep tendon reflexes 1+ in the patellar and tendo calcaneus tendons. Motor exam is strong with 5/5 dorsiflexion and extension. Peripheral pulses are 1+ posterior tibia. No peripheral edema bilaterally. Options were discussed with the patient. The patient's old chart was reviewed as his current medication regimen updated. Current review of systems updated today as well. We will proceed with refill of the patient's medication, oxycodone 20 mg every 6 hours p.r.n. pain. Again, the patient has been on very stable regimen, has had appropriate K-TRACS reporting as well as appropriate urinalysis to date. We will refill this for 2-month period with instructions, side effects to be aware of discussed. The patient will return to the clinic in approximately 2 months or sooner as necessary. NICK GOMEZ MD DR: MERRY/beth JOB#: [id number] / [id number]
== END | disposition home or self-care (01) ==
LOC: PNCL 07:55
PROVIDERS: ATTEND Anesthesiology
DX: M51.16 Intervertebral disc disorders with radiculopathy, lumbar region (principal); M47.26 Other spondylosis with radiculopathy, lumbar region; M96.1 Postlaminectomy syndrome, not elsewhere classified; M46.1 Sacroiliitis, not elsewhere classified
CPT/HCPCS: G0463

== ENCOUNTER → 2019-08-28 | Outpatient (CLI) | payer MEDICARE, OTHER ==
[2014-02-27 09:14] VITALS: BP 157/70
--- NOTE | 2019-08-28 12:29 | PAIN ---
DATE OF SERVICE: 08/28/2019 PROGRESS NOTE FOR PAIN CLINIC DIAGNOSES: Lumbar spondylosis, lumbar degenerative disk disease, lumbar post-laminectomy syndrome. HISTORY OF PRESENT ILLNESS: The patient is a 64-year-old male who returns for followup status post medication management with oxycodone and Flexeril. The patient reports he has been doing fairly well with this, about 60-70% improvement with medications without any significant side effects. The patient reports no constipation. No dizziness, drowsiness. No dysphoria or constipation. The patient reports his pain is a 10 on a scale of 10 at all times; however, worst, least and its most and is a 10 today. The patient reports it is aching and sharp in the low back, more on the right than the left side, but burning and stinging. He does have lumbar decompressive surgery tentatively scheduled for this fall or late fall. 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 He is unable to do this before this time. The patient reports in the meantime no other medicine is helping get the symptoms under control or he is actually able to function at work, but he is still having significant pain. The patient reports no new motor or sensory deficits. Again, no side effects with medications. Generally, it does not awake him from sleep at night. The patient describes the pain again aching and burning in the low back, more on the right side than the left, but present bilaterally and into the lower extremities with radiation to posterior gluteus, posterior thighs and calves, but mostly in the back. The patient reports otherwise no new concerns or complaints. PHYSICAL EXAMINATION: VITAL SIGNS: The patient's blood pressure 139/63, pulse 101, respirations are 16, temperature 98.4 degrees Fahrenheit. Height is 5 feet 10 inches, weight is 202 pounds. GENERAL: The patient is awake, alert, oriented, appropriate, very pleasant demeanor. HEENT: Shows normocephalic, atraumatic. Extraocular movements are intact and symmetrical. Oral cavity: Mucous membranes are moist and pink. Dentition is intact. NECK: Shows anterior throat supple without palpable lymphadenopathy noted. Swallow reflex symmetrical. CHEST: Shows normal on inspection. Breath sounds are clear, but coarse bilaterally. No rales, rhonchi or wheezes auscultated. HEART: Shows S1, S2 clear. ABDOMEN: Soft, nontender, nondistended. BACK: Shows spine grossly in the midline. Slight exaggerated thoracic kyphosis and flattening of lumbar lordotic curvature noted with well-healed surgical scarring. Lumbar paraspinous muscle shows symmetrical on inspection. Palpation shows some moderate tenderness diffusely bilaterally throughout the upper, middle and lower distribution of paraspinous muscles without radiation. The patient has good rotational motion of lumbar spine with some limited extension, but without significant pain. EXTREMITIES: Lower extremities show deep tendon reflexes 1+ in the patellar and tendo calcaneus tendons. Motor exam is approximately 4 on a scale of 5 bilaterally, but equal with dorsiflexion, extension, quadriceps and hamstring flexion. Peripheral pulses are 1+. No peripheral edema bilaterally. Options were discussed with the patient. The patient's old chart was reviewed as his current medication regimen updated. Current review of systems updated today as well and we will refill the patient's medication for 2-month period. The patient had appropriate K-TRACS reporting as well as appropriate urinalysis to date and we will give refill for 2-month period. The patient was given instruction as well as side effects to be aware of each of the medications. The patient will follow up in approximately 2 months or sooner if necessary. NICK GOMEZ MD DR: MERRY/beth JOB#: [id number] / [id number]
== END | disposition home or self-care (01) ==
LOC: PNCL 08:21
PROVIDERS: ATTEND Anesthesiology
DX: M47.816 Spondylosis without myelopathy or radiculopathy, lumbar region (principal); M51.36 Other intervertebral disc degeneration, lumbar region; M96.1 Postlaminectomy syndrome, not elsewhere classified
CPT/HCPCS: G0463

== ENCOUNTER → 2019-10-23 | Outpatient (CLI) | payer MEDICARE, OTHER ==
[2014-02-27 09:14] VITALS: BP 157/70
--- NOTE | 2019-10-23 08:40 | PDOC ---
Progress Note - Pain Clinic Date of Service: DOS: DATE: 10/23/19 TIME: 08:37 Diagnosis: Dx: Lumbar postlaminectomy syndrome with lumbar spondylosis and lumbar degenerative disc disease Right sacroiliitis History or Present Illness: HPI: 64-year-old male returns follow-up status post medication managed with oxycodone and Flexeril. Patient ports doing very well is been on a very stable regimen with the medications no side effects controls the pain by about 60 to 65% overall. Patient reports is been very busy preparing a [employer] recently with a lot of physical activity which is because the pain increased to some extent but when he rests the pain goes down to its baseline patient reports his pain is been fairly bad over the last week is a 10 on scale 10 is worse least an average and a 10 today. Patient was aching and sharp in the low back bilateral lower extremities can be severe and unbearable at times with activity but better with resting and sitting. Patient was generally not awaken from sleep at night but that varies day-to-day remaining on his activity. Patient reports no new motor or sensory deficits no new bowel or bladder incontinence or other complaints and no side effects from his medication once again. Physical Exam: VS: Blood pressure is 147/70 pulse 91 respiration 16 temperature 98.4 F weight is 202 pounds PE: PHYSICAL EXAMINATION: GENERAL: The patient is awake, alert, oriented, appropriate, very pleasant demeanor HEENT: Shows normocephalic, atraumatic. Extraocular movements are intact and symmetrical. Oral cavity: Mucous membranes moist and pink. NECK: Shows anterior throat supple without palpable lymphadenopathy noted. Swallow reflex symmetrical. CHEST: Shows normal on inspection. Breath sounds are clear bilaterally, distant but no rales rhonchi or wheezes auscultated. HEART: Shows S1, S2 clear. No murmurs auscultated. ABDOMEN: Soft, nontender, nondistended. No palpable organomegaly is noted. No rebound or guarding demonstrated. BACK: Shows spine grossly in the midline. Normal-appearing cervical lordotic curvature. There is slightly increased thoracic kyphosis, some minor flattening of the lumbar lordotic curvature. Lumbar paraspinous muscles show symmetrical on inspection, on palpation shows some moderate tenderness diffusely throughout the upper, middle and lower distribution of the paraspinous muscles bilaterally but without specific trigger points, without radiation of pain. The patient has good rotational motion of the lumbar spine, both laterally as well as extension and flexion without significant difficulty. No tenderness over the spinous processes, sacrum or sacroiliac regions. EXTREMITIES: Lower extremities show deep tendon reflexes 1+ in the patellar and tendo calcaneus tendons. Motor exam is 5 on a scale of 5 with right dorsiflexion, extension, quadriceps and hamstring flexion and 5/5 on the left. Peripheral pulses are 1+ posterior tibial. No peripheral edema is noted bilaterally. Lower extremities are warm and dry to touch, equal in color and appearance. SKIN: Shows warm and dry, good turgor. No edema. No sores, rashes or bruising throughout. Procedure: Procedure: Options were discussed with the patient. Patient will chart reviewed his his current medication regimen updated current review of systems updated today as well. We will refill patient's oxycodone as well as Flexeril patient is had a appropriate K tract reporting as well as appropriate urinalyses to date and will have a UA done today as routine screening. Patient given instruction as well as side effects beware of the medication were given to month refill will return to clinic in 2 months or sooner as necessary. Medication Injected: Med Injected: None Condition at Discharge: Condition at Discharge: Condition at discharge is stable. NICK GOMEZ MD Oct 23, 2019 08:40
== END | disposition home or self-care (01) ==
LOC: PNCL 08:03
PROVIDERS: ATTEND Anesthesiology
DX: M47.896 Other spondylosis, lumbar region (principal); M51.36 Other intervertebral disc degeneration, lumbar region; M46.1 Sacroiliitis, not elsewhere classified; M96.1 Postlaminectomy syndrome, not elsewhere classified; Z72.89 Other problems related to lifestyle; Z79.899 Other long term (current) drug therapy
CPT/HCPCS: G0463

== ENCOUNTER → 2019-12-25 | Outpatient (CLI) | payer MEDICARE, OTHER ==
[2014-02-27 09:14] VITALS: BP 157/70
[~2019-12-25] MED LIST changes: +AMLO-187 PO; -AMLO10TA8 PO
--- NOTE | 2019-12-25 09:21 | PDOC ---
Progress Note - Pain Clinic Date of Service: DOS: DATE: 12/25/19 TIME: 09:17 Diagnosis: Dx: Lumbar degenerative disc disease with lumbar spondylosis lumbar postlaminectomy syndrome and Bilateral sacroiliitis History or Present Illness: HPI: 64-year-old male returns follow-up status post medication management with both oxycodone and Flexeril. 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 Patient reports no other complaints no new motor or sensory deficits again no side effects with his medication. Physical Exam: VS: Blood pressure is 139/79 pulse 98 respirations 18 temperature 99.3 F height is 5 feet 10 inches weight 201 PE: PHYSICAL EXAMINATION: GENERAL: The patient is awake, alert, oriented, appropriate, very pleasant demeanor HEENT: Shows normocephalic, atraumatic. Extraocular movements are intact and symmetrical. Oral cavity: Mucous membranes moist and pink. Dentition is intact. NECK: Shows anterior throat supple without palpable lymphadenopathy noted. Swallow reflex symmetrical. CHEST: Shows normal on inspection. Breath sounds are clear bilaterally, distant but no rales rhonchi or wheezes auscultated. HEART: Shows S1, S2 clear. No murmurs auscultated. ABDOMEN: Soft, nontender, nondistended, obese. No palpable organomegaly is noted. No rebound or guarding demonstrated. BACK: Shows spine grossly in the midline. Normal-appearing cervical lordotic curvature. There is slightly increased thoracic kyphosis, some minor flattening of the lumbar lordotic curvature. Lumbar paraspinous muscles show symmetrical on inspection, on palpation shows some moderate tenderness diffusely throughout the upper, middle and lower distribution of the paraspinous muscles without specific trigger points, without radiation of pain. The patient has good rotational motion of the lumbar spine, both laterally as well as extension and flexion without significant difficulty. No tenderness over the spinous processes. Patient has significant pain however over the posterior superior iliac spines bilaterally slightly greater on the right than the left as well as the superior aspect of the sacroiliac joints. No radiation demonstrated. EXTREMITIES: Lower extremities show deep tendon reflexes 1+ in the patellar and tendo calcaneus tendons. Motor exam is 5 on a scale of 5 with right dorsiflexion, extension, quadriceps and hamstring flexion and 5/5 on the left. Peripheral pulses are 1+ posterior tibial. No peripheral edema is noted bilaterally. Lower extremities are warm and dry to touch, equal in color and appearance. SKIN: Shows warm and dry, good turgor. No edema. No sores, rashes or bruising throughout. Procedure: Procedure: Options were discussed with the patient. Patient will chart reviews his current medication regimen updated current review of systems updated today as well. We will refill patient's medication as he has been on very stable regimen has had appropriate [employer] reporting as well as appropriate urinalyses to date. We will refill for 2-month. Patient given instructions will side effects be aware of these of the medications will follow-up in approximate 2 months or sooner as necessary. We also discussed possibility of sacroiliac joint injections as he done well with these in the past has been about 2 years since he had these and he has some significant pain with palpation of the sacroiliac joints bilaterally . Patient will consider this as well and will follow up sooner if necessary. Medication Injected: Med Injected: None Condition at Discharge: Condition at Discharge: Condition at discharge is stable. NICK GOMEZ MD Dec 25, 2019 09:21
== END ==
LOC: PNCL 08:29
PROVIDERS: ATTEND Anesthesiology
DX: M51.36 Other intervertebral disc degeneration, lumbar region (principal); M47.816 Spondylosis without myelopathy or radiculopathy, lumbar region; M46.1 Sacroiliitis, not elsewhere classified; M96.1 Postlaminectomy syndrome, not elsewhere classified
CPT/HCPCS: G0463

== ENCOUNTER → 2020-02-27 | Outpatient (CLI) | payer MEDICARE, OTHER ==
[2014-02-27 09:14] VITALS: BP 157/70
[~2020-02-27] MED LIST changes: +BUPIVACAINE MPF 0.25% 10 ML VIAL. ONE; +IOHEXOL 180 MG/ML 10 ML VIAL. ONE; +methylPREDNISolone ACETATE 80 MG/ML VIAL. ONE
--- NOTE | 2020-02-27 09:44 | PDOC ---
Progress Note - Pain Clinic Date of Service: DOS: DATE: 02/27/20 TIME: 09:40 Diagnosis: Dx: Lumbar degenerative disc disease with lumbar spondylosis post lumbar laminectomy syndrome and bilateral sacroiliitis History or Present Illness: HPI: 64-year-old male returns follow-up status post medication management oxycodone and Flexeril. Patient was been doing fairly well with this today. Good reducti on in pain about 70% without side effects with the medications. Patient reports significant pain over the right posterior hip and has had significant sacroiliitis which is been responsive to injections in the past. Patient reports he would like to proceed with a sacroiliac joint injection on the right today as well. Patient ports his pain is a 10 on scale 10 at all times least w orst and at its most and is a 10 today. Patient reports cramping stabbing aching sharp shooting at times in the right hip severe and unbearable with walking standing. Patient has been very active recently with moving heavy equipment around climbing out of trucks and trailers and etc. with increased pain as well. Patient reports no new motor or sensory deficits no new bowel or bladder consult is awakening from sleep around 6 to 7 hours. Patient reports pain is better with sitting or laying down but worse with walking standing and especially changing positions. Physical Exam: VS: Blood pressure is 167/85 pulse 99 respirations 16 temperature 90.6 was Fahrenheit height is 5 foot 10 inches weight is 200 PE: PHYSICAL EXAMINATION: GENERAL: The patient is awake, alert, oriented, appropriate, very pleasant demeanor HEENT: Shows normocephalic, atraumatic. Extraocular movements are intact and symmetrical. Oral cavity: Mucous membranes moist and pink. Dentition is intact. NECK: Shows anterior throat supple without palpable lymphadenopathy noted. Swallow reflex symmetrical. CHEST: Shows normal on inspection. Breath sounds are clear bilaterally, distant but no rales or rhonchi. HEART: Shows S1, S2 clear. No murmurs auscultated. ABDOMEN: Soft, nontender, nondistended, obese. No palpable organomegaly is noted. No rebound or guarding demonstrated. BACK: Shows spine grossly in the midline. Normal-appearing cervical lordotic curvature. There is slightly increased thoracic kyphosis, some minor flattening of the lumbar lordotic curvature. Lumbar paraspinous muscles show symmetrical on inspection, on palpation shows some moderate tenderness diffusely throughout the upper, middle and lower distribution of the paraspinous muscles, but without specific trigger points, without radiation of pain. The patient has good rotational motion of the lumbar spine, both laterally as well as extension and flexion without significant difficulty. No tenderness over the spinous pr ocesses, but significant tenderness with posterior palpation on the posterior superior iliac spine on the right greater than left mildly tender on the left significantly tender on the right. No radiation is demonstrated. EXTREMITIES: Lower extremities show deep tendon reflexes 1+ in the patellar and tendo calcaneus tendons. Motor exam is 4 on a scale of 5 with right dorsiflexion, extension, quadriceps and hamstring flexion and 4/5 on the left. Peripheral pulses are 1+ posterior tibial. No peripheral edema is noted bilaterally. Lower extremities are warm and dry to touch, equal in color and appearance. SKIN: Shows warm and dry, good turgor. No edema. No sores, rashes or bruising throughout. Procedure: Procedure: Options were discussed with the patient. Patient chart reviews his current medication regimen updated current review of systems updated today as well. We will proceed with a right sacroiliac joint injection today with fluoroscopic guidance. Risks discussed including but not limited to bleeding infection possibility of intravascular injection sequelae spread local anesthetic numbness side effects steroid medication exposure fluoroscopy and portal scarring pain control. Patient understands wished to proceed patient will return to clinic in approximately 8 weeks for follow-up was counseled return appointment to level and side effects to be aware of. Patient was given refill prescription for oxycodone as well as Flexeril with instructions side effects were discussed with each of the medications. Patient has had appropriate K tracks report as well as appropriate urinalyses to date and we will make this a 2-month refill prescription. Patient also had narcotic contract updated today and was given a copy of this as well. Medication Injected: Med Injected: Under sterile prep and drape using C-arm fluoroscopic guidance, right sacroiliac joint injected using 3 cc 0.25% bupivacaine +80 mg Depo-Medrol +2 cc contrast. Condition at discharge is stable, patient tolerated procedure well and had no complications. Condition at Discharge: Condition at Discharge: Condition at discharge stable, patient tolerated procedure well and had no complications. NICK GOMEZ MD Feb 27, 2020 09:44
== END | disposition home or self-care (01) ==
LOC: PNCL 08:28
PROVIDERS: ATTEND Anesthesiology
DX: M46.1 Sacroiliitis, not elsewhere classified (principal); M96.1 Postlaminectomy syndrome, not elsewhere classified; M51.36 Other intervertebral disc degeneration, lumbar region; M47.816 Spondylosis without myelopathy or radiculopathy, lumbar region; Z79.899 Other long term (current) drug therapy; Z72.89 Other problems related to lifestyle; Z98.890 Other specified postprocedural states
CPT/HCPCS: G0260; J1040; J3490; Q9965; 27096

== ENCOUNTER → 2020-04-23 | Outpatient (CLI) | payer MEDICARE, OTHER ==
[2014-02-27 09:14] VITALS: BP 157/70
[~2020-04-23] MED LIST changes: -BUPIVACAINE MPF 0.25% 10 ML VIAL. ONE; -IOHEXOL 180 MG/ML 10 ML VIAL. ONE; +LISI10TA16 PO; -LISI10TA2 PO; -methylPREDNISolone ACETATE 80 MG/ML VIAL. ONE
--- NOTE | 2020-04-23 09:00 | PDOC ---
Progress Note - Pain Clinic Date of Service: DOS: DATE: 04/23/20 TIME: 08:56 Diagnosis: Dx: Lumbar degenerative disease lumbar spondylosis lumbar postlaminectomy syndrome Bilateral sacroiliitis History or Present Illness: HPI: 64-year-old male returns to follow-up status post medication management with oxycodone and Flexeril. Patient also had right-sided sacroiliac joint injection on his last visit which was February 27, 2020. Patient reports did very well with that with a good decrease in pain still helpful in the low back has been increasing his distance walking doing work activities household activities greater ease and comfort and travel with greater ease and not using his cane today as the pain is decreased to a fairly significant amount. Patient reports about 50% improvement least with the injection. Patient still doing well with his medication with about a 60 to 70% improvement with the medication without any significant side effects. Patient rates his pain as a 9 on a scale of 10 at all times average worst and least over the past week and is a 9 today. Patient scribes aching and shooting in the low back more on the right side and the left stabbing pain in the right posterior hip but more well controlled after last visit. Patient reports no new motor or sensory deficits no new bowel or bladder incontinence or other complaints. Physical Exam: VS: Blood pressure 164/62 pulse 88 respirations 16 temperature 90.4 F weight is 199 pounds PE: PHYSICAL EXAMINATION: GENERAL: The patient is awake, alert, oriented, appropriate, very pleasant demeanor HEENT: Shows normocephalic, atraumatic. Extraocular movements are intact and symmetrical. Oral cavity: Mucous membranes moist and pink. Dentition is intact. NECK: Shows anterior throat supple without palpable lymphadenopathy noted. Swallow reflex symmetrical. CHEST: Shows normal on inspection. Breath sounds are clear bilaterally, coarse but no rales or rhonchi. HEART: Shows S1, S2 clear. No murmurs auscultated. ABDOMEN: Soft, nontender, nondistended, obese. No palpable organomegaly is noted. BACK: Shows spine grossly in the midline. Normal-appearing cervical lordotic curvature. There is slightly increased thoracic kyphosis, some flattening of the lumbar lordotic curvature. Well-healed surgical scarring is noted. Lumbar paraspinous muscles show symmetrical on inspection, on palpation shows some moderate tenderness diffusely throughout the upper, middle and lower distribution of the paraspinous muscles bilaterally and also into the lower thoracic paraspinous musculature, firm and tender, but without specific trigger points, without radiation of pain. The patient has good rotational motion of the lumbar spine, both laterally as well as extension and flexion without sign ificant difficulty. Patient has mild tenderness over the right posterior superior iliac spine as compared to the left and slightly more tender on the right superior sacroiliac joint on the right side than the left with palpation but without radiation bilaterally. EXTREMITIES: Lower extremities show deep tendon reflexes 1+ in the patellar and tendo calcaneus tendons. Motor exam is 4 on a scale of 5 with right dorsiflexion, extension, quadriceps and hamstring flexion and 4/5 on the left. Peripheral pulses are 1+ posterior tibial. No peripheral edema is noted bilaterally. Lower extremities are warm and dry to touch, equal in color and appearance. SKIN: Shows warm and dry, good turgor. No edema. No sores, rashes or bruising throughout. Procedure: Procedure: Patient discussed with the patient. Patient chart reviews his current medication regimen updated current review of systems updated today as well. We will refill patient's medication has been on very stable regimen with appropriate K tracks report as well as appropriate urinalyses to date. Patient be given a 2-month refill oxycodone as well as Flexeril with instructions side effects aware of each of the medications. Patient will follow up in approximate 2 months or sooner if necessary. Medication Injected: Med Injected: None Condition at Discharge: Condition at Discharge: Condition at discharge stable. NICK GOMEZ MD Apr 23, 2020 09:00
== END | disposition home or self-care (01) ==
LOC: PNCL 08:32
PROVIDERS: ATTEND Anesthesiology
DX: M47.816 Spondylosis without myelopathy or radiculopathy, lumbar region (principal); M51.36 Other intervertebral disc degeneration, lumbar region; M46.1 Sacroiliitis, not elsewhere classified; Z72.89 Other problems related to lifestyle; Z79.899 Other long term (current) drug therapy; Z98.890 Other specified postprocedural states
CPT/HCPCS: G0463

== ENCOUNTER → 2020-06-27 | Outpatient (CLI) | payer MEDICARE, OTHER ==
[2014-02-27 09:14] VITALS: BP 157/70
--- NOTE | 2020-06-27 09:58 | PDOC ---
Progress Note - Pain Clinic Date of Service: DOS: DATE: 06/27/20 TIME: 09:55 Diagnosis: Dx: Lumbar degenerative disc disease with lumbar spondylosis and post lumbar laminectomy syndrome Bilateral sacroiliitis Right knee joint pain with osteoarthritis History or Present Illness: HPI: 65-year-old male returns for follow-up status post medication management with oxycodone and Flexeril. Patient reports he is doing very well with obesity 50% improvement after his last also after sacroiliac joint injection which he did very well with on February 27, 2020 patient reports still significant pain in the low back on the right side and also in the right knee which is becoming more more painful. Patient reports his pain is a 9 on scale 10 is worst over the past week 9 on average 6 at its least. Patient reports is a 9 today. Patient ports constant severe aching dull burning in the knee is sharp and aching as wel l with weightbearing only. Patient reports much better with sitting or laying down does not usually bother him from sleeping at night worse with walking and standing patient is using a cane in his right hand to ambulate. Patient reports no new motor or sensory deficits no side effects with medications. Physical Exam: VS: Blood pressure is 157/69 pulse 96 respirations 18 temperature 98.6 F height is 5 feet 10 inches weight is 207 pounds PE: PHYSICAL EXAMINATION: GENERAL: The patient is awake, alert, oriented, appropriate, very pleasant demeanor HEENT: Shows normocephalic, atraumatic. Extraocular movements are intact and symmetrical. Oral cavity: Mucous membranes moist and pink. Dentition is intact . NECK: Shows anterior throat supple without palpable lymphadenopathy noted. Swallow reflex symmetrical. CHEST: Shows normal on inspection. Breath sounds are clear bilaterally, distant but without wheezes. HEART: Shows S1, S2 clear. No murmurs auscultated. ABDOMEN: Soft, nontender, nondistended, obese. No palpable organomegaly is noted. No rebound or guarding demonstrated. BACK: Shows spine grossly in the midline. Normal-appearing cervical lordotic curvature. There is slightly increased thoracic kyphosis, some minor flattening of the lumbar lordotic curvature. Lumbar paraspinous muscles show symmetrical on inspection, on palpation shows some moderate tenderness diffusely throughout the upper, middle and lower distribution of the paraspinous muscles without specific trigger points, without radiation of pain. The patient has good rotational motion of the lumbar spine, both laterally as well as extension and flexion without significant difficulty. Mild tenderness over the right posterior superior iliac spine and sacroiliac region but nontender on the left. EXTREMITIES: Lower extremities show deep tendon reflexes 1+ in the patellar and tendo calcaneus tendons. Motor exam is 4 on a scale of 5 with right dorsiflexion, extension, quadriceps and hamstring flexion and 4/5 on the left. Peripheral pulses are 1+ posterior tibial. No peripheral edema is noted bilaterally. Lower extremities are warm and dry. SKIN: Shows warm and dry, good turgor. No edema. No sores, rashes or bruising throughout. Procedure: Procedure: Options were discussed with patient. Patient chart was reviewed his his current medication regimen updated current review of systems updated today as well. We will refill patient's oxycodone as well as Flexeril. Patient has had appropriate K tracts reporting as well as appropriate urinalyses to date and we will make this a 2-month refill. Patient was given instructions well side effects aware of each of the medications and will follow up in 2 months or sooner if necessary. Medication Injected: Med Injected: None Condition at Discharge: Condition at Discharge: Condition at discharge is stable. NICK GOMEZ MD June 27, 2020 09:58
== END | disposition home or self-care (01) ==
LOC: PNCL 08:54
PROVIDERS: ATTEND Anesthesiology
DX: M51.36 Other intervertebral disc degeneration, lumbar region (principal); M47.816 Spondylosis without myelopathy or radiculopathy, lumbar region; M96.1 Postlaminectomy syndrome, not elsewhere classified; M17.0 Bilateral primary osteoarthritis of knee; M46.1 Sacroiliitis, not elsewhere classified; Z79.899 Other long term (current) drug therapy; Z98.890 Other specified postprocedural states
CPT/HCPCS: 99212; G0463

== ENCOUNTER → 2020-08-20 | Outpatient (CLI) | payer MEDICARE, OTHER ==
[2014-02-27 09:14] VITALS: BP 157/70
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
== END | disposition home or self-care (01) ==
LOC: PNCL 08:53
PROVIDERS: ATTEND Anesthesiology
DX: M51.36 Other intervertebral disc degeneration, lumbar region (principal); M96.1 Postlaminectomy syndrome, not elsewhere classified; M47.816 Spondylosis without myelopathy or radiculopathy, lumbar region; M46.1 Sacroiliitis, not elsewhere classified; Z72.89 Other problems related to lifestyle; Z79.899 Other long term (current) drug therapy; Z98.890 Other specified postprocedural states
CPT/HCPCS: 99212; G0463

== ENCOUNTER → 2020-10-08 | Outpatient (CLI) | payer MEDICARE, OTHER ==
[2014-02-27 09:14] VITALS: BP 157/70
[~2020-10-08] MED LIST changes: +OXYC20TA PO
--- NOTE | 2020-10-08 09:35 | PDOC ---
Progress Note - Pain Clinic Date of Service: DOS: DATE: 10/08/20 TIME: 09:31 Diagnosis: Dx: Lumbar degenerative disease with lumbar spondylosis and lumbar postlaminectomy syndrome Bilateral sacroiliitis History or Present Illness: HPI: 65-year-old male returns for follow-up status post medication management with oxycodone 20 mg also taking Flexeril 10 mg and Medrol Dosepak after his last visit which did decrease the pain in his low back fairly significantly. Patient reports he still wearing his lumbar brace and has that with him today still pain in the low back into the bilateral hips and some in the lower extremities worse on the right than the left patient reports is a 10 at all times average least at worst is a 10 today scribes aching sharp shooting cramping stabbing can be severe with activity patient reports she has been working fairly consistently with significant increase in his low back pain as well as the right knee pain was doing better with some [id number] medications which is new containing chondroitin with the right knee pain. Patient reports no side effects with the medication reports overall about 65 to 70% improvement with the medications and no side effects as noted. Physical Exam: VS: Blood pressures 141/85 pulse 93 respirations 16 temperature 97.9 F weight is 205 PE: PHYSICAL EXAMINATION: GENERAL: The patient is awake, alert, oriented, appropriate, very pleasant in demeanor HEENT: Shows normocephalic, atraumatic. Extraocular movements are intact and symmetrical. Oral cavity: Mucous membranes moist and pink. NECK: Shows anterior throat supple without palpable lymphadenopathy noted. Swallow reflex symmetrical. CHEST: Shows normal on inspection. Breath sounds are clear bilaterally, coarse but no rales or rhonchi. HEART: Shows S1, S2 clear. No murmurs auscultated. ABDOMEN: Soft, nontender, nondistended, obese. No palpable organomegaly is noted. BACK: Shows spine grossly in the midline. Normal-appearing cervical lordotic curvature. There is slightly increased thoracic kyphosis, some minor flattening of the lumbar lordotic curvature. Lumbar paraspinous muscles show symmetrical on inspection, on palpation shows some moderate tenderness diffusely throughout the upper, middle and lower distribution of the paraspinous muscles, but without specific trigger points, without radiation of pain. The patient has good rotational motion of the lumbar spine, both laterally as well as extension and flexion without significant difficulty. Patient significant tenderness over the right posterior iliac spine and the superior aspect of the sacroiliac joint but without radiation, left side is nontender. EXTREMITIES: Lower extremities show deep tendon reflexes 1 in the patellar and tendo calcaneus tendons. Motor exam is 4 on a scale of 5 with right dorsiflexion, extension, quadriceps and hamstring flexion and 4/5 on the left. Peripheral pulses are 1+ posterior tibial. No peripheral edema is noted bilaterally. Lower extremities are warm and dry. SKIN: Shows warm and dry, good turgor. No edema. No sores, rashes or bruising throughout. Procedure: Procedure: Options were discussed with patient. Patient's old chart was reviewed his current medication regimen updated current review of systems updated today as well. We will have patient refill his medications when they are due in about 3 weeks. Patient has had appropriate K tracks report as well as appropriate urinalyses to date. With electronic prescribing we discussed this with the patient he will need to notify the office in about 3 weeks prior to date of renewal so that we can get this electronically prescribed for him at his pharmacy in [facility]. Patient understands and agrees and will call at that time. Patient was given instructions well as side effects to be aware of each of his medications and will follow up as scheduled. Medication Injected: Med Injected: None Condition at Discharge: Condition at Discharge: Condition at discharge is stable. NICK GOMEZ MD Oct 08, 2020 09:35
== END | disposition home or self-care (01) ==
LOC: PNCL 08:49
PROVIDERS: ATTEND Anesthesiology
DX: M51.36 Other intervertebral disc degeneration, lumbar region (principal); M47.816 Spondylosis without myelopathy or radiculopathy, lumbar region; M96.1 Postlaminectomy syndrome, not elsewhere classified; M46.1 Sacroiliitis, not elsewhere classified; Z79.899 Other long term (current) drug therapy; Z72.89 Other problems related to lifestyle; Z98.890 Other specified postprocedural states
CPT/HCPCS: 99212; G0463

== ENCOUNTER → 2021-01-03 | Outpatient (CLI) | payer MEDICARE, OTHER ==
[2014-02-27 09:14] VITALS: BP 157/70
[~2021-01-03] MED LIST changes: +CYCL10TA19 PO; -CYCL10TA2 PO
--- NOTE | 2021-01-03 09:51 | PDOC ---
Progress Note - Pain Clinic Date of Service: DOS: DATE: 01/03/21 TIME: 09:47 Diagnosis: Dx: Lumbar degenerative disease lumbar spondylosis and lumbar postlaminectomy syndrome Bilateral sacroiliitis History or Present Illness: HPI: 65-year-old male returns for follow-up status post medication management with oxycodone and Flexeril patient reports has been on very stable regimen with the pain controlled fairly well with about a 6570% improvement overall this is been consistent for her extended period of time. Patient reports he is able to perform his daily activities with work as well as household traveling with good tolerance with the medication and without any side effects. Patient has had appropriate K tracks report as well as appropriate urinalyses to date as well. Patient reports dull pain in the low back on the right side than the left but tolerable patient is wearing a back brace which helps him with his working day as well. Patient reports his pain is a 9 on a scale of 10 at its least and worst average and is a 10 at its worst is a 9 today. Patient reports no new motor or sensory deficits no bowel or bladder incontinence. Patient reports that occasionally the back is hurting in the left and the right side but today is just the right and the right is generally the more tender side. Physical Exam: VS: Blood pressure is 170/92 pulse 103 respirations 18 temperature is 90 Fahrenheit height is 5 foot 10 inches weight is 205 pounds PE: PHYSICAL EXAMINATION: GENERAL: The patient is awake, alert, oriented, appropriate, very pleasant in demeanor HEENT: Shows normocephalic, atraumatic. Extraocular movements are intact and symmetrical. NECK: Shows anterior throat supple without palpable lymphadenopathy noted. Swallow reflex symmetrical. CHEST: Shows normal on inspection. Breath sounds are clear bilaterally, coarse but no rales rhonchi or wheezes. HEART: Shows S1, S2 clear. No murmurs auscultated. ABDOMEN: Soft, nontender, nondistended, obese. No palpable organomegaly is n oted. BACK: Shows spine grossly in the midline. Normal-appearing cervical lordotic curvature. There is increased thoracic kyphosis, some flattening of the lumbar lordotic curvature. Lumbar paraspinous muscles show symmetrical on inspection, on palpation shows some moderate tenderness diffusely throughout the upper, middle and lower distribution of the paraspinous muscles, but without specific trigger points, without radiation of pain. The patient has good rotational motion of the lumbar spine, both laterally as well as extension and flexion without significant difficulty. Patient has moderate tenderness over the posterior superior iliac spines more on the right than the left as well as the superior aspect of the sacroiliac joint again more tender on the right than the left but without radiation bilaterally. EXTREMITIES: Lower extremities show deep tendon reflexes 1 in the patellar and tendo calcaneus tendons. Motor exam is 4 on a scale of 5 with right dorsiflexion, extension, quadriceps and hamstring flexion and 4/5 on the left. Peripheral pulses are 1 posterior tibial. No peripheral edema is noted bilaterally. Lower extremities are warm and dry. SKIN: Shows warm and dry, good turgor. No edema. No sores, rashes or bruising throughout. Procedure: Procedure: Options were discussed with the patient. Patient chart was reviewed his current medication regimen updated current review of systems updated today as well. We will proceed with refill of patient's oxycodone patient was given instructions well side effects aware with the medication. Again, patient has had appropriate K tracks report as well as appropriate urinalyses to date and we will make this a 30-day supply. Patient will have urinalysis drawn today as part of routine screening as well. Medication Injected: Med Injected: None Condition at Discharge: Condition at Discharge: Condition at discharge is stable. NICK GOMEZ MD Jan 03, 2021 09:51
== END | disposition home or self-care (01) ==
LOC: PNCL 09:10
PROVIDERS: ATTEND Anesthesiology
DX: M47.816 Spondylosis without myelopathy or radiculopathy, lumbar region (principal); M51.36 Other intervertebral disc degeneration, lumbar region; M46.1 Sacroiliitis, not elsewhere classified; Z79.899 Other long term (current) drug therapy; Z98.890 Other specified postprocedural states
CPT/HCPCS: 99212; G0463

== ENCOUNTER → 2021-02-04 | Outpatient (CLI) | payer MEDICARE, OTHER ==
[2014-02-27 09:14] VITALS: BP 157/70
--- NOTE | 2021-02-04 16:26 | PDOC ---
Progress Note - Pain Clinic Date of Service: DOS: DATE: 02/04/21 TIME: 16:24 Diagnosis: Dx: Lumbar degenerative disease with lumbar spondylosis and lumbar postlaminectomy syndrome Bilateral sacroiliitis History or Present Illness: HPI: Telemedicine visit today with patient did he verified with full name as well as full date of , total time spent 11 minutes 65-year-old male via telemedicine visit requesting refill patient's oxycodone and Flexeril. Patient reports he is doing very well with the medications been on very stable regimen with about a 70 to 80% improvement with the medications without significant side effects patient reports still some significant pain in the low back especially on the right side and the right posterior hip with extended walking standing especially getting in and out of a vehicle and extended standing 1 position. Patient reports otherwise doing fairly well better with sitting or laying down generally not awaken from sleep at night patient reports no significant side effects with medications has had appropriate K tracks portables appropriate urinalyses to date. We will electronically prescribe the oxycodone for the patient today with instructions side effects were discussed with the each of the medications patient will follow up in approximate 4 weeks as scheduled. Physical Exam: PE: NICK GOMEZ MD Feb 04, 2021 16:26
== END | disposition home or self-care (01) ==
LOC: PNCL 13:11
PROVIDERS: ATTEND Anesthesiology
DX: M47.816 Spondylosis without myelopathy or radiculopathy, lumbar region (principal); M51.36 Other intervertebral disc degeneration, lumbar region; M96.1 Postlaminectomy syndrome, not elsewhere classified; M46.1 Sacroiliitis, not elsewhere classified; Z79.899 Other long term (current) drug therapy; Z72.89 Other problems related to lifestyle; Z98.890 Other specified postprocedural states
CPT/HCPCS: 99212; G0463

== ENCOUNTER → 2021-03-03 | Outpatient (CLI) | payer MEDICARE, OTHER ==
[2014-02-27 09:14] VITALS: BP 157/70
[~2021-03-03] MED LIST changes: +METF500T16 PO
--- NOTE | 2021-03-03 10:27 | PDOC ---
Progress Note - Pain Clinic Date of Service: DOS: DATE: 03/03/21 TIME: 10:23 Diagnosis: Dx: Lumbar degenerative disc disease with lumbar spondylosis and lumbar postlaminectomy syndrome Bilateral sacroiliitis History or Present Illness: HPI: 65-year-old male returns for follow-up status post medication management with oxycodone and cyclobenzaprine. Patient reports he is doing very well with this been on very stable regimen with the medications and no significant side effects complains of pain in the low back more on the right side than the left but present bilaterally worse with walking standing change positions patient reports no new motor or sensory deficits no bowel or bladder incontinence better with sitting or laying down generally is not awakening from sleep and is better with sitting or riding in a car as long is not more than about an hour patient reports at that time the pain has began to increase with sitting for prolonged periods patient rates pain is a 10 on scale 10 is worst 10 on average 9 at its least and is a 10 today patient reports worse again with walking standing he is using a cane in his right hand ambulate and has it with him today patient scribes pain as aching dull in the low back radiating shooting in the right hip can be constant severe again with weightbearing. Patient has had appropriate K tracks report as well as appropriate urinalyses to date as well. Patient reports that he is recently put on metformin for type 2 diabetes and is taking this once daily. Physical Exam: VS: Blood pressure is 136/66 pulse 98 respirations 18 temperature is 98.2 F height is 5 feet 10 inches weight is 203 pounds. PE: PHYSICAL EXAMINATION: GENERAL: The patient is awake, alert, oriented, appropriate, very pleasant in demeanor HEENT: Shows normocephalic, atraumatic. Extraocular movements are intact and symmetrical.. NECK: Shows anterior throat supple without palpable lymphadenopathy noted. Swallow reflex symmetrical. CHEST: Shows normal on inspection. Breath sounds are clear bilaterally, distant and coarse but no rales or rhonchi. HEART: Shows S1, S2 clear. No murmurs auscultated. ABDOMEN: Soft, nontender, nondistended. No palpable organomegaly is noted. BACK: Shows spine grossly in the midline. Normal-appearing cervical lordotic curvature. There is slightly increased thoracic kyphosis, some minor flattening of the lumbar lordotic curvature. Lumbar paraspinous muscles show symmetrical on inspection, on palpation shows some moderate tenderness diffusely throughout the upper, middle and lower distribution of the paraspinous muscles without specific trigger points, without radiation of pain. The patient has good rotational motion of the lumbar spine, both laterally as well as extension and flexion without significant difficulty. Patient shows moderate tenderness over the right posterior superior iliac spine and right superior sacroiliac region but without radiation. EXTREMITIES: Lower extremities show deep tendon reflexes 1+ in the patellar and tendo calcaneus tendons. Motor exam is 4 on a scale of 5 with right dorsiflexion, extension, quadriceps and hamstring flexion and 4/5 on the left. Peripheral pulses are 1+ posterior tibial. No peripheral edema is noted bilaterally. Lower extremities are warm and dry to touch, equal in color and appearance. SKIN: Shows warm and dry, good turgor. No edema. No sores, rashes or bruising throughout. Procedure: Procedure: Options were discussed with the patient. Patient chart was reviewed his his current medication regimen updated current review of systems updated today as well. We will refill patient's oxycodone and cyclobenzaprine with instructions and side effects beware of discussed with each of the medications. Patient will be given a 30-day supply. Patient again has had appropriate K tracks report as well as appropriate urinalyses to date. We will follow-up in approximate 30 days as scheduled. Medication Injected: Med Injected: None Condition at Discharge: Condition at Discharge: Condition at discharge is stable. NICK GOMEZ MD Mar 03, 2021 10:26
== END | disposition home or self-care (01) ==
LOC: PNCL 10:04
PROVIDERS: ATTEND Anesthesiology
DX: M47.816 Spondylosis without myelopathy or radiculopathy, lumbar region (principal); M51.36 Other intervertebral disc degeneration, lumbar region; M96.1 Postlaminectomy syndrome, not elsewhere classified; M46.1 Sacroiliitis, not elsewhere classified; Z79.899 Other long term (current) drug therapy
CPT/HCPCS: 99212; G0463

== ENCOUNTER → 2021-04-03 | Outpatient (CLI) | payer MEDICARE, OTHER ==
[2014-02-27 09:14] VITALS: BP 157/70
--- NOTE | 2021-04-03 15:35 | PDOC ---
Progress Note - Pain Clinic Date of Service: DOS: DATE: 04/03/21 TIME: 15:33 Diagnosis: Dx: Lumbar degenerative disc disease with lumbar spondylosis and lumbar postlaminectomy syndrome Bilateral sacroiliitis History or Present Illness: HPI: Telemedicine visit today with patient with identity verified with full name as well as full date of , total time spent 11 minutes 65-year-old male via telemedicine visit today requesting refill of oxycodone. Patient has been on a very stable regimen with medication reports no side effects and good reduction in pain by about 60 to 70% most days. 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 Patient reports no new motor or sensory deficits no bowel or bladder incontinence and again no side effects with the medication. Patient has had appropriate K tracks reporting, as well as appropriate urinalysis as well to date. We will refill patient's medication for 30-day prescription. Patient will follow up in 30 days as scheduled. Physical Exam: PE: NICK GOMEZ MD Apr 03, 2021 15:35
== END | disposition home or self-care (01) ==
LOC: PNCL 15:09
PROVIDERS: ATTEND Anesthesiology
DX: M47.26 Other spondylosis with radiculopathy, lumbar region (principal); M51.36 Other intervertebral disc degeneration, lumbar region; M96.1 Postlaminectomy syndrome, not elsewhere classified; M46.1 Sacroiliitis, not elsewhere classified; Z79.84 Long term (current) use of oral hypoglycemic drugs; Z79.899 Other long term (current) drug therapy; Z98.890 Other specified postprocedural states; Z72.89 Other problems related to lifestyle
CPT/HCPCS: 99212; G0463

== ENCOUNTER → 2021-04-28 | Outpatient (CLI) | payer MEDICARE, OTHER ==
[2014-02-27 09:14] VITALS: BP 157/70
--- NOTE | 2021-04-28 10:36 | PDOC ---
Progress Note - Pain Clinic Date of Service: DOS: DATE: 04/28/21 TIME: 10:32 Diagnosis: Dx: Lumbar degenerative disease lumbar spondylosis lumbar postlaminectomy syndrome Bilateral sacroiliitis History or Present Illness: HPI: 65-year-old male returns for follow-up status post medication management with oxycodone and Flexeril. Patient reports he is doing very well with his been on very stable regimen still some pain in the low back more on the right side than the left as well as previously also has had previous sacroiliac joint injections but patient reports is not to the point where it is that bad at this time and he is managing very well with the medication regimen thus far patient reports no significant side effects with medications patient is had appropriate K tracks re port as well as appropriate urinalyses to date as well. Patient reports the pain is a 10 on scale 10 is worst average and least is a 10 today in the right side of low back worse with activity standing walking changing positions getting in and out of a vehicle and patient reports he is very busy at work and is doing this activity quite a bit getting in and out of different vehicles and driving sometimes for prolonged periods. Patient reports pain is aching and sharp in the back can be shooting in the right hip and lower extremity at times cramping and stabbing can be unbearable with extended standing walking but is better with sitting or laying down patient reports he is able to do this at the end of his workday also using heat compress which helps the low back as well. Physical Exam: VS: Blood pressure is 169/83 pulse 98 respirations 18 temperature 98.7 F height 5 feet 10 inches weight 199 pounds. PE: PHYSICAL EXAMINATION: GENERAL: The patient is awake, alert, oriented, appropriate, very pleasant in demeanor HEENT: Shows normocephalic, atraumatic. Extraocular movements are intact and symmetrical. NECK: Shows anterior throat supple without palpable lymphadenopathy noted. Swallow reflex symmetrical. CHEST: Shows normal on inspection. Breath sounds are clear bilaterally, distant but no rales or rhonchi. HEART: Shows S1, S2 clear. No murmurs auscultated. ABDOMEN: Soft, nontender, nondistended. No palpable organomegaly is noted. No rebound or guarding demonstrated. BACK: Shows spine grossly in the midline. Normal-appearing cervical lordotic curvature. There is mildly increased thoracic kyphosis, some flattening of the lumbar lordotic curvature, with well-healed surgical scarring noted. Lumbar paraspinous muscles show symmetrical on inspection, on palpation shows some moderate tenderness diffusely throughout the upper, middle and lower distribution of the paraspinous muscles without specific trigger points, without radiation of pain. The patient has good rotational motion of the lumbar spine, both laterally as well as extension and flexion without significant difficulty. No tenderness over the spinous processes, sacrum or sacroiliac regions. EXTREMITIES: Lower extremities show deep tendon reflexes 1+ in the patellar and tendo calcaneus tendons. Motor exam is 4 on a scale of 5 with right dorsiflexion, extension, quadriceps and hamstring flexion and 4/5 on the left. Peripheral pulses are 1+ posterior tibial. No peripheral edema is noted bilaterally. Lower extremities are warm and dry. SKIN: Shows warm and dry, good turgor. No edema. No sores, rashes or bruising throughout. Procedure: Procedure: Options were discussed with the patient, patient's old chart was reviewed as his current medication regimen updated current review of systems updated today as well. We will refill patient's oxycodone as well as Flexeril with instructions side effects were discussed with each of the medications. Oxycodone be electronically prescribed. Patient will follow up in approximately 30days as scheduled. Medication Injected: Med Injected: None Condition at Discharge: Condition at Discharge: Condition at discharge is stable. NICK GOMEZ MD Apr 28, 2021 10:36
== END | disposition home or self-care (01) ==
LOC: PNCL 09:56
PROVIDERS: ATTEND Anesthesiology
DX: M51.36 Other intervertebral disc degeneration, lumbar region (principal); M47.816 Spondylosis without myelopathy or radiculopathy, lumbar region; M96.1 Postlaminectomy syndrome, not elsewhere classified; M46.1 Sacroiliitis, not elsewhere classified; Z79.84 Long term (current) use of oral hypoglycemic drugs; Z79.899 Other long term (current) drug therapy; Z72.89 Other problems related to lifestyle; Z98.890 Other specified postprocedural states
CPT/HCPCS: 99212; G0463

== ENCOUNTER → 2021-06-30 | Outpatient (CLI) | payer MEDICARE, OTHER ==
[2014-02-27 09:14] VITALS: BP 157/70
--- NOTE | 2021-06-30 10:50 | PDOC ---
Progress Note - Pain Clinic Date of Service: DOS: DATE: 06/30/21 TIME: 10:47 Diagnosis: Dx: Lumbar lumbosacral spondylosis with lumbar degenerative disc disease and lumbar postlaminectomy syndrome Bilateral sacroiliitis History or Present Illness: HPI: 66-year-old male returns for follow-up status post medication management with oxycodone and Flexeril patient doing very well with his medication regimen reports no significant side effects with good reduction in pain in the low back and the right posterior hip by about 70 to 75% patient reports no side effects once again has been a very stable regimen. Patient reports still significant pain with changing positions sitting for prolonged periods walking for long periods with his pain is a 9 on scale 10 on average worst and least is a 9 today patient reports shooting tingling constant severe in the right posterior hip and low back shooting across the back but not into the lower extremities on and off in intensity better with sitting or laying down but sitting for prolonged period s greater than an hour or so can exacerbate the pain in the right hip posteriorly patient reports much worse with walking standing changing positions bending stooping or walking more than about 15 minutes. Patient reports no loss of motor function but significant fatigability of both lower extremities with ambulation. Patient reports no bowel or bladder incontinence. Physical Exam: VS: Blood pressure is 123/59 pulse 94 respirations 18 temperature 98.3 F weight is 186 pounds. PE: PHYSICAL EXAMINATION: GENERAL: The patient is awake, alert, oriented, appropriate, very pleasant in demeanor HEENT: Shows normocephalic, atraumatic. Extraocular movements are intact and symmetrical. NECK: Shows anterior throat supple without palpable lymphadenopathy noted. Swallow reflex symmetrical. CHEST: Shows normal on inspection. Breath sounds are clear bilaterally. HEART: Shows S1, S2 clear. No murmurs auscultated. ABDOMEN: Soft, nontender, nondistended. No palpable organomegaly is noted. No rebound or guarding demonstrated. BACK: Shows spine grossly in the midline. Normal-appearing cervical lordotic curvature. There is slightly increased thoracic kyphosis, some minor flattening of the lumbar lordotic curvature. Lumbar paraspinous muscles show symmetrical on inspection, on palpation shows some moderate tenderness diffusely throughout the upper, middle and lower distribution of the paraspinous muscles, but without specific trigger points, without radiation of pain. The patient has good rotational motion of the lumbar spine, both laterally as well as extension and flexion without significant difficulty. Moderate tenderness over the right posterior superior iliac spine as well as the superior aspect of the sacroiliac joint without radiation, left side is nontender. EXTREMITIES: Lower extremities show deep tendon reflexes 1+ in the patellar and tendo calcaneus tendons. Motor exam is 4 on a scale of 5 with right dorsiflexion, extension, quadriceps and hamstring flexion and 4/5 on the left. Peripheral pulses are 1+ posterior tibial. No peripheral edema is noted bilaterally. Lower extremities are warm and dry. SKIN: Shows warm and dry, good turgor. No edema. No sores, rashes or bruising throughout. Procedure: Procedure: Options discussed with patient. Patient's old chart was reviewed his current medication regimen updated current review of systems updated today as well. We will refill patient's oxycodone as well as Flexeril, with instructions as well as potential side effects discussed. Patient has had appropriate K tracks reporting as well as appropriate urinalyses to date as well. Patient will follow up in approximate 30 days as scheduled. Medication Injected: Med Injected: None Condition at Discharge: Condition at Discharge: Condition at discharge is stable. NICK GOMEZ MD June 30, 2021 10:50
== END | disposition home or self-care (01) ==
LOC: PNCL 09:54
PROVIDERS: ATTEND Anesthesiology
DX: M47.816 Spondylosis without myelopathy or radiculopathy, lumbar region (principal); M47.817 Spondylosis without myelopathy or radiculopathy, lumbosacral region; M51.36 Other intervertebral disc degeneration, lumbar region; M96.1 Postlaminectomy syndrome, not elsewhere classified; M46.1 Sacroiliitis, not elsewhere classified; Z79.84 Long term (current) use of oral hypoglycemic drugs; Z79.899 Other long term (current) drug therapy; Z98.890 Other specified postprocedural states
CPT/HCPCS: 99212; G0463